=== PATIENT | female | born 1965 | race Caucasian/White ===

== ENCOUNTER → 2017-02-27 | Outpatient (CLI) | payer OTHER ==
[~2017-02-27] MED LIST: SYN100 PO
[2017-02-27 18:05] LABS: BLOOD UREA NITROGEN 14 mg/dl (7-18); CALCIUM 9.8 mg/dl (8.5-10.1); CARBON DIOXIDE 31 mmol/L (21-32); CHLORIDE 106 mmol/L (98-107); CREATININE 0.88 mg/dl (0.60-1.20); GLUCOSE 171 mg/dl (70-99); POTASSIUM 4.7 mmol/L (3.5-5.1); SODIUM 138 mmol/L (136-145)
[2017-02-27 18:08] LABS: CHOLESTEROL/HDL RATIO 4.2
[2017-02-28 06:47] LABS: ESTIMATED AVERAGE GLUCOSE 177 mg/dl; HA1C FLAG Normal (Normal)
== END | disposition home or self-care (01) ==
LOC: C.LABPVFM 15:55
PROVIDERS: ATTEND Nurse Practitioner
DX: E78.5 Hyperlipidemia, unspecified (principal); E11.9 Type 2 diabetes mellitus without complications; E03.9 Hypothyroidism, unspecified

== ENCOUNTER → 2017-08-29 | Outpatient (CLI) | payer OTHER ==
[2017-08-29 17:41] LABS: BLOOD UREA NITROGEN 15 mg/dl (7-18); CARBON DIOXIDE 26 mmol/L (21-32); CREATININE 0.72 mg/dl (0.60-1.20); GLUCOSE 78 mg/dl (70-99); POTASSIUM 4.2 mmol/L (3.5-5.1); SODIUM 138 mmol/L (136-145)
[2017-08-30 07:08] LABS: HEMOGLOBIN A1C 7.6 % (4.5-5.6)
== END | disposition home or self-care (01) ==
LOC: C.LABPVFM 14:44
PROVIDERS: ATTEND Nurse Practitioner
DX: E11.9 Type 2 diabetes mellitus without complications (principal); E03.9 Hypothyroidism, unspecified

== ENCOUNTER 2021-01-30 20:47 | Inpatient (IN) ==
[2021-01-30] MEDS ORDERED: PIPERACILL/TAZOBAC CONSULT ACTIVE PRN (22:28)
[2021-01-30] MEDS ORDERED: VANCOMYCIN HCL 2,750 MG in SODIUM CHLORIDE 0.9% 500 ML IV ONE (22:28)
[2021-01-30] MEDS ORDERED: VANCOMYCIN CONSULT ACTIVE PRN (22:28)
[2021-01-30] MEDS ORDERED: PIPERACILLIN/TAZOBACTAM 4.5 GM/120 ML BAG IV ONE (22:28)
--- NOTE | 2021-01-30 22:37 | Emergency Department Note ---
History of Present Illness General Chief complaint: Foot Injury/Pain Stated complaint: FEET WARTS, REFERRED BY DOCTOR Time Seen by Provider: 01/30/21 22:17 Source: patient and family History of Present Illness Provider complaint: Foot ulcers Onset (ago): month(s) 2 Location: foot, left and right Severity: moderate Pain Consistency: + constant Quality: + other (No significant pain) Relieved By: + none Associated symptoms: no chest pain, no cough, no fever/chills, no nausea/vomiting or no shortness of breath This is a 55-year-old female with a history of diabetic neuropathy presenting with ulcerations to both of her feet. She denies any known injury. She states that the ulcerations have been going on for about 2 months. She eventually saw her primary care physician who referred her to podiatry. She saw podiatry today who called in a prescription for her for antibiotics. She has not been on antibiotics prior to this. They did order x-rays and later called her at home to tell her that she should go immediately to the hospital because of a bone infection based on the x-rays. She denies any pain to her feet because she has diabetic neuropathy. She states her blood sugars has been in the 200s for the most part. She has had no fever, cough or cold symptoms, chest pain, shortness of breath, vomiting, abdominal pain or urinary symptoms. She does have chronic diarrhea from her medications. She has not had her Covid vaccination as [facility]. Home Medications Medication Instructions Recorded Confirmed Type pen needle, diabetic 31 gauge x #100 ea 02/04/20 10/31/20 Rx 3/16" (BD Ultra-Fine Mini Pen Needle) lancets 33 gauge (OneTouch Bebeto See Rx Instructions .ROUTE 09/08/20 10/31/20 Rx Lancets) .COMPLEX #100 unspecified levothyroxine 100 mcg tablet 100 mcg PO DAILY #30 tab 09/08/20 01/30/21 Rx blood-glucose meter (OneTouch #1 ea 09/12/20 10/31/20 Rx Verio Meter) metformin 500 mg tablet 500 mg PO DAILY #30 tab 09/15/20 01/30/21 Rx blood sugar diagnostic (OneTouch ea 10/27/20 10/31/20 History Verio test strips) methocarbamol 750 mg tablet 750 mg PO .COMPLEX #30 tab 10/31/20 01/30/21 Rx insulin aspart U-100 100 unit/mL 0 unit SQ AC 01/30/21 01/30/21 History (3 mL) subcutaneous pen (Novolog Flexpen U-100 Insulin aspart) insulin glargine 100 unit/mL (3 40 unit SQ BID 01/30/21 01/30/21 History mL) subcutaneous pen (Lantus Solostar U-100 Insulin) lisinopril 20 mg tablet 20 mg PO DAILY 01/30/21 01/30/21 History simvastatin 20 mg tablet 20 mg PO HS 01/30/21 01/30/21 History Allergies Allergy/AdvReac Type Severity Reaction Status Date / Time No Known Drug Allergies AdvReac Unknown Unknown Verified 01/30/21 23:34 Past Med/Surg History Medical History Diabetes Hyperlipidemia Hypothyroidism Neuropathy, diabetic Well adult Surgical History History of hysterectomy Family History Denies family history of Ovarian cancer Prostate cancer Myocardial infarction Breast cancer Colorectal cancer Social History Smoking Status: Never smoker Second Hand Exposure: No; Hx Alcohol Use: Yes Alcohol Intake Frequency: Monthly or Less Hx Substance Use: No marital status: Current Living Situation: Spouse and Family current occupational status: unemployed Feels Safe at Home: Yes caffeine: Yes Dental Care, Regularly: No Physical Activity Frequency: Does not Exercise Seatbelt Use: always Sunscreen Use: Yes Review of Systems See HPI for pertinent positives & negatives. and A total of 10 systems reviewed and were otherwise negative Physical Exam Vital Signs Vital Signs - 24 hr 01/30/21 21:15 01/30/21 21:55 01/30/21 22:58 Temperature 37.1 C Temperature Source Temporal Artery Scan Pulse Rate 113 H Pulse Rate [Right Finger] 112 H 101 H Respiratory Rate 20 20 20 Respiratory Effort / Characteristics Non-Labored Spontaneous Respiratory Depth Normal Respiratory Pattern Regular Blood Pressure 162/78 H Blood Pressure [Right Arm] 167/77 H 146/72 H Blood Pressure Mean 106 Blood Pressure Mean [Right Arm] 107 96 Blood Pressure Position Sitting Pulse Oximetry 98 98 98 Oxygen Delivery Method Room Air Room Air Room Air Sepsis Recent Fever Within 48 Hours No Sepsis New/Unexplained Change in Mental Status No Sepsis Action Taken by Nursing No Action Required 01/30/21 23:34 Temperature Temperature Source Pulse Rate Pulse Rate [Right Finger] 109 H Respiratory Rate 20 Respiratory Effort / Characteristics Respiratory Depth Respiratory Pattern Blood Pressure Blood Pressure [Right Arm] 156/89 H Blood Pressure Mean Blood Pressure Mean [Right Arm] 111 Blood Pressure Position Pulse Oximetry 98 Oxygen Delivery Method Room Air Sepsis Recent Fever Within 48 Hours Sepsis New/Unexplained Change in Mental Status Sepsis Action Taken by Nursing Constitutional: Vital signs reviewed. Eyes: Pupils are equal round reactive to light. Conjunctiva are noninjected. ENT: Pharynx is clear without erythema or exudate. Mucous membranes are moist. Neck supple without meningeal signs. Respiratory: Clear to auscultation bilaterally. Breath sounds are equal bilaterally. Cardiovascular: Regular rate and rhythm. No rubs or gallops. GI: Soft, nondistended and nontender. Bowel sounds are present. Musculoskeletal: Silver dollar sized diabetic ulcer to the left heel which is foul-smelling and concerning for pseudomonal infection. There are smaller ulcerations over the left fifth metatarsal head and proximal phalanx. There is a ulceration over the right lateral aspect of the foot over the fifth metatarsal. No discharge is noted. There is no increased warmth to either foot. Integumentary: No cyanosis. or jaundice. Neurological: The patient is awake and alert. No focal deficits. Psychiatric: Normal affect. Not anxious appearing. Course Administered Medications Vancomycin HCl 2,750 mg/ (Sodium Chloride) 555 mls @ 200 mls/hr IV NOW ONE Stop: 01/31/21 01:14 Last Admin: 01/30/21 23:31 Dose: 200 mls/hr Documented by: [id number] Discontinued Medications Piperacillin Sod/Tazobactam Sod (Zosyn) 4.5 gm in 120 mls @ 240 mls/hr IV NOW ONE Stop: 01/30/21 22:57 Last Infusion: 01/30/21 23:31 Dose: 0 mls/hr Documented by: [id number] Admin: 01/30/21 22:52 Dose: 240 mls/hr Documented by: [id number] Medical Decision Making Differential Diagnosis Osteomyelitis, MRSA, Pseudomonas, diabetic foot ulcer, hyperglycemia, bacteremia Medical Records Attestation: I reviewed the patient's medical records. I did perform a limited focused review of portions of the patient's old chart on the electronic medical record. The patient had x-rays of both feet today which shows acute osteomyelitis of both feet. This involves the calcaneus and the fifth metatarsal and proximal phalanx of the left foot as well as the fifth metatarsal of the right foot. Home Medications Current Medication List: was personally reviewed by me Laboratory Data Attestation: I reviewed the patient's lab results. Result diagrams: 01/30/21 22:48 01/30/21 22:48 Lab Results 01/30/21 01/30/21 01/30/21 Range/Units 22:35 22:48 22:48 WBC 7.84 (4.8-10.8) K/uL RBC 4.62 (4.2-5.4) M/uL Hgb 13.8 (12.0-16.0) g/dL Hct 41.7 (37-47) % MCV 90.3 (80-100) fL MCH 29.9 (25-34) pg MCHC 33.1 (32-36) g/dL RDW Std Deviation 48.7 H (36.4-46.3) fL RDW Coeff of Jose 14.7 H (11.5-14.5) % Plt Count 231 (130-400) K/uL MPV 10.0 (7.4-10.4) fL Immature Gran % (Auto) 0.1 % Neut % (Auto) 67.6 % Lymph % (Auto) 22.7 % [place] % (Auto) 8.0 % Eos % (Auto) 1.3 % Baso % (Auto) 0.3 % Neut # (Auto) 5.30 (1.4-6.5) K/uL Lymph # (Auto) 1.78 (1.2-3.4) K/uL [place] # (Auto) 0.63 H (0.11-0.59) K/uL Eos # (Auto) 0.10 (0-0.5) K/uL Baso # (Auto) 0.02 (0-0.2) K/uL Immature Gran # (Auto) 0.01 (0.00-0.02) K/uL Sodium 137 (136-145) mmol/L Potassium 4.3 (3.5-5.1) mmol/L Chloride 107 (98-107) mmol/L Carbon Dioxide 27 (21-32) mmol/L Anion Gap 4.0 (3-11) BUN 17 (7-18) mg/dl Creatinine 0.85 (0.6-1.2) mg/dl Est Cr Clr Drug Dosing 106.8 ml/min Est GFR ( Amer) 88.2 ml/min Est GFR (Non-Af Amer) 76.1 ml/min BUN/Creatinine Ratio 20.0 (10-20) Glucose 256 H (70-99) mg/dl Lactate (0.4-2.0) mmol/L Calcium 9.1 (8.5-10.1) mg/dl Total Bilirubin 0.5 (0.2-1) mg/dl AST 28 (15-37) U/L ALT 42 (12-78) U/L Alkaline Phosphatase 101 (45-117) U/L Total Protein 8.3 H (6.4-8.2) gm/dl Albumin 3.1 L (3.4-5.0) gm/dl Globulin 5.2 H (2.5-4.0) gm/dl Albumin/Globulin Ratio 0.6 L (0.9-2) COVID-19 Eval Order Covid19 at [facility] 01/30/21 Range/Units 22:49 WBC (4.8-10.8) K/uL RBC (4.2-5.4) M/uL Hgb (12.0-16.0) g/dL Hct (37-47) % MCV (80-100) fL MCH (25-34) pg MCHC (32-36) g/dL RDW Std Deviation (36.4-46.3) fL RDW Coeff of Jose (11.5-14.5) % Plt Count (130-400) K/uL MPV (7.4-10.4) fL Immature Gran % (Auto) % Neut % (Auto) % Lymph % (Auto) % [place] % (Auto) % Eos % (Auto) % Baso % (Auto) % Neut # (Auto) (1.4-6.5) K/uL Lymph # (Auto) (1.2-3.4) K/uL [place] # (Auto) (0.11-0.59) K/uL Eos # (Auto) (0-0.5) K/uL Baso # (Auto) (0-0.2) K/uL Immature Gran # (Auto) (0.00-0.02) K/uL Sodium (136-145) mmol/L Potassium (3.5-5.1) mmol/L Chloride (98-107) mmol/L Carbon Dioxide (21-32) mmol/L Anion Gap (3-11) BUN (7-18) mg/dl Creatinine (0.6-1.2) mg/dl Est Cr Clr Drug Dosing ml/min Est GFR ( Amer) ml/min Est GFR (Non-Af Amer) ml/min BUN/Creatinine Ratio (10-20) Glucose (70-99) mg/dl Lactate 2.5 H* (0.4-2.0) mmol/L Calcium (8.5-10.1) mg/dl Total Bilirubin (0.2-1) mg/dl AST (15-37) U/L ALT (12-78) U/L Alkaline Phosphatase (45-117) U/L Total Protein (6.4-8.2) gm/dl Albumin (3.4-5.0) gm/dl Globulin (2.5-4.0) gm/dl Albumin/Globulin Ratio (0.9-2) COVID-19 Eval Order MDM Narrative I did evaluate the patient as noted above. She is presenting with acute osteomyelitis of both feet on x-ray earlier today. IV access was established. I did order blood cultures. I did treat the patient with IV vancomycin and IV Zosyn to cover MRSA and gram-negative organisms including Pseudomonas. I did order and review the patient's blood work as noted in the electronic medical record. CBC is unremarkable without leukocytosis or anemia. Electrolytes are unremarkable. Her glucose is elevated to 56. Lactate is 2.5. I did discuss the case with the shoe caser. The hospitalist was informed. Covid testing is currently pending. Impression & Plan Acute osteomyelitis, Neuropathy, diabetic, Hyperglycemia Discharge Plan Visit Data Chief Complaint: Foot Injury/Pain Stated Complaint: FEET WARTS, REFERRED BY DOCTOR ED Provider: Shane Cardona Discharge Problem: Acute osteomyelitis, Neuropathy, diabetic, Hyperglycemia Patient Disposition: Being Evaluated by Hospitalist Forms Stand Alone Forms: My [facility] Prescriptions Prescriptions: No Action (DME) pen needle, diabetic [BD Ultra-Fine Mini Pen Needle] 31 gauge x 3/16" needle See Dose Instructions .ROUTE .MEDSUPPLY Qty: 100 RF: 5 (DME) blood-glucose meter [OneTouch Verio Meter] Misc See Rx Instructions .ROUTE .MEDSUPPLY Qty: 1 RF: 0 metformin 500 mg tablet 500 mg PO DAILY Qty: 30 RF: 11 methocarbamol 750 mg tablet 750 mg PO .COMPLEX Qty: 30 RF: 0 (DME) OneTouch Verio test strips Strip See Rx Instructions .ROUTE .MEDSUPPLY RF: 0 levothyroxine 100 mcg tablet 100 mcg PO DAILY Qty: 30 RF: 11 lancets [OneTouch Delica Lancets] 33 gauge misc See Rx Instructions .ROUTE .COMPLEX Qty: 100 RF: 11 lisinopril 20 mg tablet 20 mg PO DAILY RF: 0 simvastatin 20 mg tablet 20 mg PO HS RF: 0 insulin aspart U-100 [Novolog Flexpen U-100 Insulin] 100 unit/mL (3 mL) insulin pen 0 unit SQ AC RF: 0 Lantus Solostar U-100 Insulin 100 unit/mL (3 mL) insulin pen 40 unit SQ BID RF: 0 Referrals Referrals: Stephy Klein CRNP [Primary Care Provider] -
[2021-01-30 23:05] LABS: Basophils # (auto) 0.02 K/uL (0-0.2); Basophils % (auto) 0.3 %; Eosinophils % (auto) 1.3 %; Hematocrit (blood only) 41.7 % (37-47); Hemoglobin 13.8 g/dL (12.0-16.0); Immature Granulocytes # (auto) 0.01 K/uL (0.00-0.02); Immature Granulocytes % (auto) 0.1 %; Lymphocytes # (auto) 1.78 K/uL (1.2-3.4); Lymphocytes % (auto) 22.7 %; Mean Corpuscular Hemoglobin 29.9 pg (25-34); Mean Corpuscular Hgb Conc 33.1 g/dL (32-36); Mean Corpuscular Volume 90.3 fL (80-100); Monocytes # (auto) 0.63 K/uL (0.11-0.59); Neutrophils % (auto) 67.6 %; Platelet Count 231 K/uL (130-400); RDW Coefficient of Variation 14.7 % (11.5-14.5); RDW Standard Deviation 48.7 fL (36.4-46.3); Red Blood Count 4.62 M/uL (4.2-5.4); White Blood Count 7.84 K/uL (4.8-10.8)
[2021-01-30 23:38] LABS: Albumin Level 3.1 gm/dl (3.4-5.0); Calcium 9.1 mg/dl (8.5-10.1); Creatinine Clr Calc Pharmacy 106.8 ml/min; Est GFR (African American) 88.2 ml/min; Est GFR (Non-African American) 76.1 ml/min; Potassium 4.3 mmol/L (3.5-5.1)
[2021-01-30 23:40] LABS: Albumin Globulin Ratio 0.6 (0.9-2); Bilirubin,Total 0.5 mg/dl (0.2-1); Globulin 5.2 gm/dl (2.5-4.0); Total Protein 8.3 gm/dl (6.4-8.2)
--- NOTE | 2021-01-30 23:47 | History & Physical Report ---
Date of Service January 30, 2021 Assessment & Plan (1) Diabetic foot ulcer with osteomyelitis: Plan: Osteomyelitis left calcaneus and left first MTP, proximal phalanx of the left fifth toe. Osteomyelitis of right fifth MTP that is most likely chronic but could also possibly have an acute complement Place on vancomycin IV and Zosyn IV per pharmacokinetic monitoring Patient will likely need a PICC line placed for extended course of antibiotics (2) Diabetes: Plan: Continue insulin glargine 40 units subcu twice daily. Place on Accu-Cheks before meals and at bedtime with NovoLog coverage per scale Check hemoglobin A1c Hold Metformin (3) Hypothyroidism: Plan: Continue levothyroxine 100 mcg daily (4) Neuropathy, diabetic: Plan: Significant decrease sensation, allowing progression of significant ulceration and osteomyelitis without significant pain appreciated (5) Hyperlipidemia: Plan: Continue simvastatin 20 mg at bedtime (6) Fatty liver: Plan: Follow serial laboratories (7) Hypertension: Plan: Continue lisinopril History of Present Illness Chief Complaint: The patient is referred to the emergency department by their outpatient physician due to concerns regarding foot ulcers bilaterally. Primary Care Provider: TOBY Kim The patient is a 55-year-old female with past medical history including hyperglycemia in diabetes, diabetes mellitus, hypothyroidism, diabetic neuropathy, vitamin D deficiency, hyperlipidemia, fatty liver, leiomyoma of uterus, hypertension, obesity and muscle spasm, was referred to the emergency department by her outpatient physician due to concerns regarding diabetic foot ulcers. Patient herself not experience any discomfort due to her significant diabetic neuropathy. Allergies Allergy/AdvReac Type Severity Reaction Status Date / Time No Known Drug Allergies AdvReac Unknown Unknown Verified 01/30/21 23:34 Home Medications Medication Instructions Recorded Confirmed Type pen needle, diabetic 31 gauge x #100 ea 02/04/20 10/31/20 Rx 3/16" (BD Ultra-Fine Mini Pen Needle) lancets 33 gauge (OneTouch Delica See Rx Instructions .ROUTE 09/08/20 10/31/20 Rx Lancets) .COMPLEX #100 unspecified levothyroxine 100 mcg tablet 100 mcg PO DAILY #30 tab 09/08/20 01/30/21 Rx blood-glucose meter (OneTouch #1 ea 09/12/20 10/31/20 Rx Verio Meter) metformin 500 mg tablet 500 mg PO DAILY #30 tab 09/15/20 01/30/21 Rx blood sugar diagnostic (OneTouch ea 10/27/20 10/31/20 History Verio test strips) methocarbamol 750 mg tablet 750 mg PO .COMPLEX #30 tab 10/31/20 01/30/21 Rx insulin aspart U-100 100 unit/mL 0 unit SQ AC 01/30/21 01/30/21 History (3 mL) subcutaneous pen (Novolog Flexpen U-100 Insulin aspart) insulin glargine 100 unit/mL (3 40 unit SQ BID 01/30/21 01/30/21 History mL) subcutaneous pen (Lantus Solostar U-100 Insulin) lisinopril 20 mg tablet 20 mg PO DAILY 01/30/21 01/30/21 History simvastatin 20 mg tablet 20 mg PO HS 01/30/21 01/30/21 History Past Med/Surg History Medical History (Updated 01/31/21 @ 03:50 by Dao Pedraza MD) Diabetes Hyperlipidemia Hypertension Hypothyroidism Neuropathy, diabetic Well adult Surgical History History of hysterectomy Family History Denies family history of Ovarian cancer Prostate cancer Myocardial infarction Breast cancer Colorectal cancer Social History Smoking Status: Never smoker Second Hand Exposure: No; Hx Alcohol Use: Yes Alcohol Intake Frequency: Monthly or Less Hx Substance Use: No Beliefs That Will Affect Care: None marital status: Current Living Situation: Spouse current occupational status: unemployed Other Information That Helps Us Care for You: No Feels Safe at Home: Yes Safety Concerns: Feels Safe At This Time caffeine: Yes Dental Care, Regularly: No Physical Activity Frequency: Does not Exercise Seatbelt Use: always Sunscreen Use: Yes Assistive Devices: Glasses Review of Systems Review of Systems: The patient denies chest pain, palpitations, shortness of breath, dyspnea on exertion, cough, lower extremity swelling, sore throat, fevers, chills, sweats, weight change, nausea, vomiting, diarrhea , constipation, abdominal pain, pelvic pain, blood in urine or stool, dysuria, urinary frequency or urgency, lightheadedness, dizziness, headache, memory loss, loss of consciousness, imbalance, focal or generalized weakness, numbness or tingling in arms, generalized arthralgias or myalgias, back or neck pain, or night sweats. The review of systems is otherwise negative other than for that already noted above, and at least 10 systems have been reviewed. Physical Exam Physical Exam: The patient is awake, alert and oriented 3, well developed and well nourished, normocephalic and atraumatic, lying in bed and in no acute distress. HEENT--PERRL, EOMI, mucous membranes and oropharynx normal. Neck--supple. No JVD. No bruits. Thyroid normal, trachea midline, no adenopathy. Heart--normal S1 and S2. No murmurs, rubs or gallops. Lungs--clear bilaterally, no respiratory distress, no accessory muscle use. Abdomen--normal bowel sounds and soft. Nontender. Nondistended. Morbidly obese Extremities--no cyanosis or clubbing. No edema. Dermatologic--ulcer noted over plantar surface of right fifth MTP, and over left first MTP area Neurologic--cranial nerves II through XII grossly intact. Rheumatologic--limited exam due to body habitus Psychiatric--normal affect. Results & Data Results & Data ([facility]) Vital Signs (Past 12 Hours) Vital Signs Temp Pulse Pulse Resp BP BP Pulse Ox 01/30/21 23:34 109 H 20 156/89 H 98 01/30/21 22:58 101 H 20 146/72 H 98 01/30/21 21:55 112 H 20 167/77 H 98 01/30/21 21:15 98.8 F 113 H 20 162/78 H 98 Laboratory Results Laboratory Results WBC 7.84 K/uL (4.8-10.8) 01/30/21 22:48 RBC 4.62 M/uL (4.2-5.4) 01/30/21 22:48 Hgb 13.8 g/dL (12.0-16.0) 01/30/21 22:48 Hct 41.7 % (37-47) 01/30/21 22:48 MCV 90.3 fL (80-100) 01/30/21 22:48 MCH 29.9 pg (25-34) 01/30/21 22:48 MCHC 33.1 g/dL (32-36) 01/30/21 22:48 RDW Std Deviation 48.7 fL (36.4-46.3) H 01/30/21 22:48 RDW Coeff of Jose 14.7 % (11.5-14.5) H 01/30/21 22:48 Plt Count 231 K/uL (130-400) 01/30/21 22:48 MPV 10.0 fL (7.4-10.4) 01/30/21 22:48 Immature Gran % (Auto) 0.1 % 01/30/21 22:48 Neut % (Auto) 67.6 % 01/30/21 22:48 Lymph % (Auto) 22.7 % 01/30/21 22:48 Carbon % (Auto) 8.0 % 01/30/21 22:48 Eos % (Auto) 1.3 % 01/30/21 22:48 Baso % (Auto) 0.3 % 01/30/21 22:48 Neut # (Auto) 5.30 K/uL (1.4-6.5) 01/30/21 22:48 Lymph # (Auto) 1.78 K/uL (1.2-3.4) 01/30/21 22:48 Carbon # (Auto) 0.63 K/uL (0.11-0.59) H 01/30/21 22:48 Eos # (Auto) 0.10 K/uL (0-0.5) 01/30/21 22:48 Baso # (Auto) 0.02 K/uL (0-0.2) 01/30/21 22:48 Immature Gran # (Auto) 0.01 K/uL (0.00-0.02) 01/30/21 22:48 Sodium 137 mmol/L (136-145) 01/30/21 22:48 Potassium 4.3 mmol/L (3.5-5.1) 01/30/21 22:48 Chloride 107 mmol/L (98-107) 01/30/21 22:48 Carbon Dioxide 27 mmol/L (21-32) 01/30/21 22:48 Anion Gap 4.0 (3-11) 01/30/21 22:48 BUN 17 mg/dl (7-18) 01/30/21 22:48 Creatinine 0.85 mg/dl (0.6-1.2) 01/30/21 22:48 Est Cr Clr Drug Dosing 106.8 ml/min 01/30/21 22:48 Est GFR ( Amer) 88.2 ml/min 01/30/21 22:48 Est GFR (Non-Af Amer) 76.1 ml/min 01/30/21 22:48 BUN/Creatinine Ratio 20.0 (10-20) 01/30/21 22:48 Glucose 256 mg/dl (70-99) H 01/30/21 22:48 POC Glucose 205 mg/dl (70-99) H 01/31/21 02:33 Lactate 1.3 mmol/L (0.4-2.0) 01/31/21 00:55 Calcium 9.1 mg/dl (8.5-10.1) 01/30/21 22:48 Total Bilirubin 0.5 mg/dl (0.2-1) 01/30/21 22:48 AST 28 U/L (15-37) 01/30/21 22:48 ALT 42 U/L (12-78) 01/30/21 22:48 Alkaline Phosphatase 101 U/L (45-117) 01/30/21 22:48 Total Protein 8.3 gm/dl (6.4-8.2) H 01/30/21 22:48 Albumin 3.1 gm/dl (3.4-5.0) L 01/30/21 22:48 Globulin 5.2 gm/dl (2.5-4.0) H 01/30/21 22:48 Albumin/Globulin Ratio 0.6 (0.9-2) L 01/30/21 22:48 COVID-19 Eval Order Covid19 at [facility] 01/30/21 22:35 SARS-CoV-2 (PCR) NEGATIVE (Negative) 01/30/21 22:35 Diagnostic Findings [facility], [phone] XRay Report Patient: CHARMAINE GUARDADOAdmit Date: 01/30/21MR#: [id number]: [address]Acct ID:[id number]: Date: [address] Zip: [place] [id number]: 55Location: RADSex: FRoom/Bed:Att [facility]: Nirav Mcclellan, III, DPMDiagnosis: L97.413,C97.526,L97.423Pri Phy: Stephy Klein CRNPService Date: 01/30/21Fam Phy:Interpreting Phy: Nathan June MDAdmit Phy: Ordering Phy: Nirav Mcclellan, III, DPM cc: ~ XR foot LT min 3V routine CLINICAL HISTORY: L97.413,C97.526,L97.423. Diabetic ulcers. COMPARISON: None FINDINGS: Note is made of left foot soft tissue swelling. There is a wound overlying the posterior aspect of the calcaneus. Note is made of erosion of the adjacent posterior most aspect of the left calcaneus. Markedly abnormal appearance of the left fifth metatarsal is noted with sclerosis and lucency with periosteal reaction. There may be an old fracture of the midshaft of the left fifth metatarsal. There is also significant erosion within the base of the proximal phalanx of the left fifth toe. 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 Soft tissue calcifications of the left lower leg are incidentally noted. IMPRESSION: 1. Wound overlying the posterior calcaneus with erosion of the adjacent posterior calcaneus suggestive of acute osteomyelitis. 2. Findings highly suggestive of extensive acute osteomyelitis of the left first metatarsal and the proximal phalanx of the left fifth toe. Adjacent wound. This finding will be called/faxed to ordering provider at time of dictation. ACT 112: Negative or not required by law. Electronically signed by: Nathan June M.D. 01/30/2021 1:46 PM Dictated: 01/30/21 1342Transcribed: 01/30/21 1342 [facility], [phone] XRay Report Patient: CHARMAINE GUARDADOAdmit Date: 01/30/21MR#: [id number]: [address]Acct ID:[id number]: Date: 1965[facility] Zip: [place], [place] [address]Knb: 55Location: RADSex: FRoom/Bed:Att Phy: Nirav Mcclellan, III, DPMDiagnosis: L97.413,C97.526,L97.423Pri Phy: Stephy Klein, CRNPService Date: 01/30/21Fa Phy:Interpreting Phy: Nathan June MDAdmit Phy: Ordering Phy: Nirav Mcclellan, III, DPM cc: ~ XR foot RT min 3V routine CLINICAL HISTORY: L97.413,C97.526,L97.423. Diabetic ulcers. COMPARISON: None FINDINGS: Alignment of the right foot is anatomic. Tarsometatarsal joints are intact. No acute fracture. Note is made of a wound the lateral right midfoot overlying the lateral of the proximal right fifth metatarsal. There is mild sclerosis within the base and proximal shaft of the right fifth metatarsal. Plantar posterior calcaneal spurring is noted. Note is made of moderate osteoarthritis within multiple articulations within the right foot. IMPRESSION: Lateral right midfoot wound. Sclerosis of the base and proximal shaft of the right fifth metatarsal, adjacent to the wound. This sclerosis favors osteomyelitis. Although probably chronic, acute osteomyelitis cannot be excluded by radiography. ACT 112: Negative or not required by law. Electronically signed by: Nathan June M.D. 01/30/2021 1:42 PM Dictated: 01/30/21 1338Transcribed: 01/30/21 1338 Code Status & VTE Plan Code Status Full code VTE Prophylaxis Plan VTE Prophylaxis will be ordered: Yes PG Care Time/CCT Total # of Minutes Spent Total Time Spent with Patient: Total time spent is greater than 50% in coordination of care (as documented) at patient's floor/unit and/or counseling patient: Coding Level of Care Code 30107 Initial Inpt Care Lvl 3 Diagnoses Diabetic foot ulcer with osteomyelitis E11.621; E11.69; L97.509; M86.9 Diabetes E11.9 Hypothyroidism E03.9 Neuropathy, diabetic E11.40 Hyperlipidemia E78.5 Fatty liver K76.0 Hypertension I10
[2021-01-31] MEDS ORDERED: VANCOMYCIN HCL 2,000 MG in SODIUM CHLORIDE 0.9% 500 ML IV SCH (01:56)
[2021-01-31] MEDS ORDERED: GLUCAGON FOR INJ 1 MG VIAL SQ PRN (01:56)
[2021-01-31] MEDS ORDERED: DEXTROSE 50% 50 ML SYRINGE IV PRN (01:56)
[2021-01-31] MEDS ORDERED: CARBOHYDRATES FOR HYPOGLYCEMIA PO PRN (01:56)
[2021-01-31] MEDS ORDERED: GLUCOSE 10 TABS/TUBE PO PRN (01:56)
[2021-01-31] MEDS ORDERED: VANCOMYCIN CONSULT ACTIVE PRN (01:56)
[2021-01-31] MEDS ORDERED: ONDANSETRON INJ 2 MG/ML 2 ML VIAL IV PRN (01:56)
[2021-01-31] MEDS ORDERED: PIPERACILL/TAZOBAC CONSULT ACTIVE PRN (01:56)
[2021-01-31] MEDS ORDERED: GLUCOSE 40% GEL 15 GM TUBE PO PRN (01:56)
[2021-01-31] MEDS: INSULIN ASPART 100 UNITS/ML 3 ML PEN SC SCH ×5 (02:57→21:05)
[2021-01-31] MEDS: INSULIN GLARGINE SOLOSTAR 100 UNITS/ML 3 ML PEN SQ SCH ×3 (02:59→21:05)
[2021-01-31] MEDS: PIPERACILLIN/TAZOBACTAM 4.5 GM in DEXTROSE 5% 100 ML IV SCH ×3 (03:05→20:30)
[2021-01-31] MEDS ORDERED: DAPTOmycin 375 MG in SYRINGE 0 ML IV SCH (04:00)
[2021-01-31] MEDS: HEPARIN SOD 5,000 UNIT/0.5 ML VIAL SQ SCH ×3 (06:39→21:07)
[2021-01-31] MEDS: LEVOTHYROXINE SODIUM 100 MCG TABLET PO SCH (06:41)
[2021-01-31 07:47] LABS: Estimated Average Glucose 255 mg/dl; Hemoglobin A1C 10.5 % (4.5-5.6)
[2021-01-31] MEDS: lisinopril 20 MG TAB PO SCH (08:45)
[2021-01-31] MEDS ORDERED: DAPTOmycin 200 MG in SYRINGE 0 ML IV ONE (11:00)
--- NOTE | 2021-01-31 17:39 | Hospitalist Progress Note ---
Date of Service January 31, 2021 Assessment & Plan (1) Diabetic foot ulcer with osteomyelitis: Plan: Osteomyelitis left calcaneus and left first MTP, proximal phalanx of the left fifth toe. Osteomyelitis of right fifth MTP that is most likely chronic but could also possibly have an acute component is draining and with foul smell Place on vancomycin IV and Zosyn IV per pharmacokinetic monitoring Patient will likely need a PICC line placed for extended course of antibiotics (2) Diabetes: Plan: Continue insulin glargine 40 units subcu twice daily. Place on Accu-Cheks before meals and at bedtime with NovoLog coverage per scale Check hemoglobin A1c Hold Metformin (3) Hypothyroidism: Plan: Continue levothyroxine 100 mcg daily (4) Neuropathy, diabetic: Plan: Significant decrease sensation, allowing progression of significant ulceration and osteomyelitis without significant pain appreciated (5) Hyperlipidemia: Plan: Continue simvastatin 20 mg at bedtime (6) Fatty liver: Plan: Follow serial laboratories (7) Hypertension: Plan: Continue lisinopril Admission and Anticipated Discharge Date Admission Date: January 30, 2021 Subjective pt has no new complaints or issues, has wounds on both feet. Not febrile at this time Review of Systems Review of Systems: Mild distress and fatigue no headache, no visual changes no speech or swallowing issues no chest pain, pressure or palpitations no shortness of breath, cough or wheezes no abdominal pain, nausea or vomiting, diarrhea or constipation no dysuria, hematuria or frequency no focal joint pain is bilateral lower extremity swelling no back pain, CVA tenderness or radicular pain Stasis changes to both legs no focal signs of weakness or numbness or altered sensation no complaints of anxiety or depression.. Physical Exam Physical Exam: The patient appeared obese no apparent distress Vital signs as documented. Head exam is normocephalic atraumatic Neck is without JVD, thyromegaly, or carotid bruits. Lungs are clear to auscultation, no focal loss of breath sounds Cardiac exam, Rhythm is regular.. No murmurs, rubs or gallops. Abdominal exam reveals normal bowel sounds, soft non tender, no masses Extremities are edematous, chronic venous stasis changes, open areas on both feet, foul smell from right, macerated tissue on left Neurologic exam is alert and oriented, no focal loss of strength distal neuropathy Skin is with chronic stasis discoloration Psychologically is without concerns for anxiety or depression Results & Data Results & Data ([facility]) Vital Signs (Past 12 Hours) Vital Signs Temp Pulse Resp BP Pulse Ox 01/31/21 14:48 97.9 F 104 H 16 131/84 95 01/31/21 07:11 98.2 F 93 H 16 120/75 95 01/31/21 06:54 98.2 F 97 H 16 128/80 94 PG Care Time/CCT Total # of Minutes Spent Total Time Spent with Patient: Total time spent is greater than 50% in coordination of care (as documented) at patient's floor/unit and/or counseling patient: Coding Level of Care Code 50449 Subseq Hosp Care Lvl 3 Diagnoses Diabetic foot ulcer with osteomyelitis E11.621; E11.69; L97.509; M86.9 Diabetes E11.9 Hypothyroidism E03.9 Neuropathy, diabetic E11.40 Hyperlipidemia E78.5 Fatty liver K76.0 Hypertension I10
[2021-01-31] MEDS: SIMVASTATIN 20 MG TAB PO SCH (20:20)
[2021-01-31] MEDS: ACETAMINOPHEN 325 MG TAB PO PRN (20:29)
[2021-02-01] MEDS: PIPERACILLIN/TAZOBACTAM 4.5 GM in DEXTROSE 5% 100 ML IV SCH ×3 (04:42→20:15)
[2021-02-01] MEDS: DAPTOmycin 550 MG in SYRINGE 0 ML IV SCH (04:43)
[2021-02-01] MEDS: HEPARIN SOD 5,000 UNIT/0.5 ML VIAL SQ SCH ×3 (05:53→20:55)
[2021-02-01] MEDS: LEVOTHYROXINE SODIUM 100 MCG TABLET PO SCH (05:53)
[2021-02-01 08:27] LABS: Basophils # (auto) 0.03 K/uL (0-0.2); Basophils % (auto) 0.5 %; Eosinophils # (auto) 0.21 K/uL (0-0.5); Eosinophils % (auto) 3.3 %; Hematocrit (blood only) 40.1 % (37-47); Hemoglobin 13.1 g/dL (12.0-16.0); Lymphocytes # (auto) 2.07 K/uL (1.2-3.4); Lymphocytes % (auto) 32.3 %; Mean Corpuscular Hemoglobin 29.8 pg (25-34); Mean Corpuscular Hgb Conc 32.7 g/dL (32-36); Mean Corpuscular Volume 91.1 fL (80-100); Mean Platelet Volume 9.9 fL (7.4-10.4); Monocytes # (auto) 0.57 K/uL (0.11-0.59); Monocytes % (auto) 8.9 %; Neutrophils # (auto) 3.52 K/uL (1.4-6.5); Platelet Count 245 K/uL (130-400); RDW Coefficient of Variation 14.9 % (11.5-14.5)
--- NOTE | 2021-02-01 08:37 | Magnetic Resonance Report ---
MR foot LT w/o con HISTORY: Abnormal left foot radiograph. both feet have wounds, r/o osteo TECHNIQUE: Multiplanar multisequence MRI of the left forefoot was performed without contrast accordin g to standard departmental protocol. COMPARISON STUDY: Left foot radiograph 01/30/2021. FINDINGS: There is extensive subcutaneous and deep soft tissue edema seen throughout the visualized f orefoot. Abnormal marrow signal intensity and cortical destruction within the majority of the fifth m etatarsal and base of the right fifth toe proximal phalanx consistent with an osteomyelitis. There is a possible pathologic fracture at the neck of the fifth metatarsal. Best seen on axial image 17 ther e is a T2 hyperintense lobular tissue focus which partially surrounds the head of the fifth metatarsa l. This measures 2.8 x 1.5 cm and demonstrates internal septations. This may represent a soft tissue abscess. There is also marrow edema without abnormal T1 signal or cortical destruction within the dis alvaro findings the right first toe. This favors an osteitis. No evidence for osteomyelitis at this time . The Lisfranc joint is intact. Soft tissue wound at the dorsal lateral aspect of the fifth MTP joint . IMPRESSION: 1. Abnormal marrow signal and cortical destruction within the majority of the fifth metatarsal and ba se of the right fifth toe proximal phalanx consistent with osteomyelitis. 2. There is suggestion of a 2.8 x 1.5 cm abscess along the dorsal lateral aspect of the forefoot at t he level of the fifth metatarsal head. 3. Possible pathologic fracture at the neck of the fifth metatarsal. 4. Osteitis without evidence for osteomyelitis within the distal phalanx of the first toe. ACT 112: Negative or not required by law. Electronically signed by: Koby Balderrama M.D. 02/01/2021 8:36 AM
--- NOTE | 2021-02-01 08:38 | Magnetic Resonance Report ---
MR foot RT w/o con HISTORY: 55 years-old Female both feet have wounds, r/o osteo patient presents with chronic nonheali ng ulcers of the right foot COMPARISON: Right foot radiographs 01/30/2021 TECHNIQUE: Multiplanar multisequence MRI of the right foot was obtained without the use of IV contras t FINDINGS: There is a 3.5 x 2.0 cm soft tissue ulcer of the lateral midfoot/forefoot junction superficial to the base of the fifth metatarsal. Associated skin thickening with subcutaneous edema suggestive of cellu litis. There is mild intrinsic atrophy of the musculature of the foot. This finding in conjunction wi th diffuse intramuscular edema is suggestive of chronic denervation changes. No drainable fluid colle ction. The imaged flexor and extensor tendons appear intact. The study is mildly motion degraded. The Lisfranc ligament appears intact. There is mild multifocal osteoarthritis. Mild hallux valgus. Sclerosis involving the lateral cortex o f the proximal fifth metatarsal redemonstrated. No osseous erosions identified to suggest acute osteo myelitis. IMPRESSION: 1. Soft tissue ulcer of the lateral midfoot/forefoot junction with adjacent cellulitis. No drainable fluid collection. 2. Chronic appearing sclerosis involves the lateral cortex of the fifth metatarsal base. There is no evidence of acute osteomyelitis. 3. Chronic denervation changes. ACT 112: Negative or not required by law. The above report was generated using voice recognition software. It may contain grammatical, syntax o r spelling errors. Electronically signed by: Parminder Steinberg M.D. 02/01/2021 8:37 AM
[2021-02-01 09:10] LABS: Albumin Level 2.5 gm/dl (3.4-5.0); Calcium 8.3 mg/dl (8.5-10.1); Creatinine Clr Calc Pharmacy 148.7 ml/min; Est GFR (African American) 117.3 ml/min; Est GFR (Non-African American) 101.2 ml/min; Potassium 3.7 mmol/L (3.5-5.1)
[2021-02-01 09:17] LABS: Albumin Globulin Ratio 0.6 (0.9-2); Bilirubin,Total 1.2 mg/dl (0.2-1); Globulin 4.4 gm/dl (2.5-4.0); Total Protein 6.9 gm/dl (6.4-8.2)
[2021-02-01] MEDS: INSULIN GLARGINE SOLOSTAR 100 UNITS/ML 3 ML PEN SQ SCH ×2 (09:32→20:54)
[2021-02-01] MEDS: INSULIN ASPART 100 UNITS/ML 3 ML PEN SC SCH ×4 (09:32→20:33)
[2021-02-01] MEDS: lisinopril 20 MG TAB PO SCH (09:33)
--- NOTE | 2021-02-01 19:10 | Hospitalist Progress Note ---
Date of Service February 01, 2021 Assessment & Plan (1) Diabetic foot ulcer with osteomyelitis: Plan: Osteomyelitis left calcaneus and left first MTP, proximal phalanx of the left fifth toe. Osteomyelitis of right fifth MTP that is most likely chronic but could also possibly have an acute component is draining and with foul smell Place on vancomycin IV and Zosyn IV per pharmacokinetic monitoring Patient will likely need a PICC line placed for extended course of antibiotics left foot MRI 1. Abnormal marrow signal and cortical destruction within the majority of the fifth metatarsal and base of the right fifth toe proximal phalanx consistent with osteomyelitis. 2. There is suggestion of a 2.8 x 1.5 cm abscess along the dorsal lateral aspect of the forefoot at the level of the fifth metatarsal head. 3. Possible pathologic fracture at the neck of the fifth metatarsal. 4. Osteitis without evidence for osteomyelitis within the distal phalanx of the first toe. right foot without definitely osteomyelitis but chronic appearing sclerosis of the lateral cortex of the 5th metarsal base will need ortho eval for possible surgical correction (2) Diabetes: Plan: Continue insulin glargine 40 units subcu twice daily. Place on Accu-Cheks before meals and at bedtime with NovoLog coverage per scale Check hemoglobin A1c Hold Metformin (3) Hypothyroidism: Plan: Continue levothyroxine 100 mcg daily (4) Neuropathy, diabetic: Plan: Significant decrease sensation, allowing progression of significant ulceration and osteomyelitis without significant pain appreciated (5) Hyperlipidemia: Plan: Continue simvastatin 20 mg at bedtime (6) Fatty liver: Plan: Follow serial laboratories (7) Hypertension: Plan: Continue lisinopril Admission and Anticipated Discharge Date Admission Date: January 30, 2021 Subjective pt has no new complaints or issues, has wounds on both feet associated with osteomyelitis seen on imaging , pt is shocked at this news. Not febrile at this time Review of Systems Review of Systems: Mild distress and fatigue no headache, no visual changes no speech or swallowing issues no chest pain, pressure or palpitations no shortness of breath, cough or wheezes no abdominal pain, nausea or vomiting, diarrhea or constipation no dysuria, hematuria or frequency no focal joint pain is bilateral lower extremity swelling no back pain, CVA tenderness or radicular pain Stasis changes to both legs, open areas on feet no focal signs of weakness or numbness or altered sensation no complaints of anxiety or depression.. Physical Exam Physical Exam: The patient appeared obese no apparent distress Vital signs as documented. Head exam is normocephalic atraumatic Neck is without JVD, thyromegaly, or carotid bruits. Lungs are clear to auscultation, no focal loss of breath sounds Cardiac exam, Rhythm is regular.. No murmurs, rubs or gallops. Abdominal exam reveals normal bowel sounds, soft non tender, no masses Extremities are edematous, chronic venous stasis changes, open areas on both feet, foul smell from right, macerated tissue on left Neurologic exam is alert and oriented, no focal loss of strength distal neuropathy Skin is with chronic stasis discoloration Psychologically is without concerns for anxiety or depression Results & Data Results & Data ([facility]) Vital Signs (Past 12 Hours) Vital Signs Temp Pulse Resp BP BP Pulse Ox 02/01/21 15:17 98.2 F 89 16 114/68 95 02/01/21 08:38 98.1 F 82 16 121/76 97 PG Care Time/CCT Total # of Minutes Spent Total Time Spent with Patient: Total time spent is greater than 50% in coordination of care (as documented) at patient's floor/unit and/or counseling patient: Coding Level of Care Code 80320 Subseq Hosp Care Lvl 2 Diagnoses Diabetic foot ulcer with osteomyelitis E11.621; E11.69; L97.509; M86.9 Diabetes E11.9 Hypothyroidism E03.9 Neuropathy, diabetic E11.40 Hyperlipidemia E78.5 Fatty liver K76.0 Hypertension I10
[2021-02-01] MEDS: SIMVASTATIN 20 MG TAB PO SCH (20:18)
[2021-02-02] MEDS: ACETAMINOPHEN 325 MG TAB PO PRN ×2 (00:18→19:31)
[2021-02-02] MEDS: PIPERACILLIN/TAZOBACTAM 4.5 GM in DEXTROSE 5% 100 ML IV SCH (03:43)
[2021-02-02] MEDS: DAPTOmycin 550 MG in SYRINGE 0 ML IV SCH (03:44)
[2021-02-02] MEDS: HEPARIN SOD 5,000 UNIT/0.5 ML VIAL SQ SCH ×2 (06:13→14:35)
[2021-02-02] MEDS: LEVOTHYROXINE SODIUM 100 MCG TABLET PO SCH (06:13)
[2021-02-02 09:06] LABS: Basophils # (auto) 0.02 K/uL (0-0.2); Basophils % (auto) 0.3 %; Eosinophils # (auto) 0.22 K/uL (0-0.5); Hematocrit (blood only) 41.5 % (37-47); Hemoglobin 13.5 g/dL (12.0-16.0); Immature Granulocytes # (auto) 0.01 K/uL (0.00-0.02); Immature Granulocytes % (auto) 0.1 %; Lymphocytes # (auto) 1.86 K/uL (1.2-3.4); Lymphocytes % (auto) 25.3 %; Mean Corpuscular Hemoglobin 29.8 pg (25-34); Mean Corpuscular Hgb Conc 32.5 g/dL (32-36); Mean Corpuscular Volume 91.6 fL (80-100); Mean Platelet Volume 10.1 fL (7.4-10.4); Monocytes # (auto) 0.57 K/uL (0.11-0.59); Monocytes % (auto) 7.8 %; Neutrophils # (auto) 4.66 K/uL (1.4-6.5); Neutrophils % (auto) 63.5 %; Platelet Count 255 K/uL (130-400); RDW Coefficient of Variation 14.8 % (11.5-14.5); Red Blood Count 4.53 M/uL (4.2-5.4); White Blood Count 7.34 K/uL (4.8-10.8)
[2021-02-02] MEDS: INSULIN ASPART 100 UNITS/ML 3 ML PEN SC SCH ×3 (09:31→17:44)
[2021-02-02] MEDS: lisinopril 20 MG TAB PO SCH (09:32)
[2021-02-02] MEDS: INSULIN GLARGINE SOLOSTAR 100 UNITS/ML 3 ML PEN SQ SCH (09:32)
[2021-02-02 09:40] LABS: Albumin Level 2.7 gm/dl (3.4-5.0); BUN Creatinine Ratio 15.1 (10-20); Calcium 8.2 mg/dl (8.5-10.1); Creatinine Clr Calc Pharmacy 120.6 ml/min; Est GFR (African American) 104.2 ml/min; Est GFR (Non-African American) 89.9 ml/min; Potassium 3.9 mmol/L (3.5-5.1)
[2021-02-02 09:43] LABS: Albumin Globulin Ratio 0.6 (0.9-2); Bilirubin,Total 0.9 mg/dl (0.2-1); Globulin 4.6 gm/dl (2.5-4.0); Total Protein 7.3 gm/dl (6.4-8.2)
--- NOTE | 2021-02-02 12:09 | Orthopedic Consultation ---
Date of Consultation February 02, 2021 Assessment & Plan (1) Diabetic foot ulcer with osteomyelitis: Left foot MRI shows fifth metatarsal and base of the right fifth toe proximal phalanx consistent with osteomyelitis. There is suggestion of abscess along the dorsal lateral aspect of the forefoot at the level of the fifth metatarsal head. Possible pathologic fracture at the neck of the fifth metatarsal. Osteitis without evidence for osteomyelitis within the distal phalanx of the first toe. Right foot MRI without definitely osteomyelitis but chronic appearing sclerosis of the lateral cortex of the 5th metarsal base. Will make patient NPO. Will order MRI of left ankle to evaluate heel/calcaneus. Will see if see if Dr Loyd also wants xrays. Will discuss in detail with Rach. Patient aware will more than likely need surgical intervention to left LE. Dr Loyd will be in to see patient later today. Present on Admission?: Yes History of Present Illness Reason for Consultation: Diabetic foot ulcers B LE Requesting Physician: Dr Loyd Attending Physician: Pelon Lam MD History of Present Illness The patient is a 55-year-old female with past medical history including diabetes mellitus insulin dependent, hypothyroidism, diabetic neuropathy, vitamin D deficiency, hyperlipidemia, fatty liver, leiomyoma of uterus, hypertension, and obesity. She was referred to the emergency department by her outpatient physician due to concerns regarding diabetic foot ulcers. She states that the ulcerations have been going on for about 2 months. She eventually saw her primary care physician who referred her to podiatry. Podiatry got xrays and were going to start antibiotics but after review of xrays told patient to go to the ED. because of a bone infection based on the x-rays. She states her blood sugars has been in the 200s for the most part. She does have chronic diarrhea from her medications. She was admitted to medicine and started on IV antibiotics. MRI's of both feet were performed. Patient is walking in her room. She has breakfast. She denies f/c/s. Allergies Allergy/AdvReac Type Severity Reaction Status Date / Time No Known Drug Allergies AdvReac Unknown Unknown Verified 01/30/21 23:34 Home Medications Medication Instructions Recorded Confirmed Type pen needle, diabetic 31 gauge x #100 ea 02/04/20 10/31/20 Rx 3/16" (BD Ultra-Fine Mini Pen Needle) lancets 33 gauge (OneTouch Delica See Rx Instructions .ROUTE 09/08/20 10/31/20 Rx Lancets) .COMPLEX #100 unspecified levothyroxine 100 mcg tablet 100 mcg PO DAILY #30 tab 09/08/20 01/30/21 Rx blood-glucose meter (OneTouch #1 ea 09/12/20 10/31/20 Rx Verio Meter) metformin 500 mg tablet 500 mg PO DAILY #30 tab 09/15/20 01/30/21 Rx blood sugar diagnostic (OneTouch ea 10/27/20 10/31/20 History Verio test strips) methocarbamol 750 mg tablet 750 mg PO .COMPLEX #30 tab 10/31/20 01/30/21 Rx insulin aspart U-100 100 unit/mL 0 unit SQ AC 01/30/21 01/30/21 History (3 mL) subcutaneous pen (Novolog Flexpen U-100 Insulin aspart) insulin glargine 100 unit/mL (3 40 unit SQ BID 01/30/21 01/30/21 History mL) subcutaneous pen (Lantus Solostar U-100 Insulin) lisinopril 20 mg tablet 20 mg PO DAILY 01/30/21 01/30/21 History simvastatin 20 mg tablet 20 mg PO HS 01/30/21 01/30/21 History Patient History Medical History Diabetes Hyperlipidemia Hypertension Hypothyroidism Neuropathy, diabetic Well adult Surgical History History of hysterectomy Family History Denies family history of Ovarian cancer Prostate cancer Myocardial infarction Breast cancer Colorectal cancer Social History Smoking Status: Never smoker Second Hand Exposure: No; Hx Alcohol Use: Yes Alcohol Intake Frequency: Monthly or Less Hx Substance Use: No Communication Ability: Effective Beliefs That Will Affect Care: None marital status: Current Living Situation: Spouse current occupational status: unemployed Feels Safe at Home: Yes caffeine: Yes Dental Care, Regularly: No Physical Activity Frequency: Does not Exercise Seatbelt Use: always Sunscreen Use: Yes Assistive Devices: Glasses Review of Systems Review of Systems: positive for generalized numbness in legs, pain left heel, open wounds bilateral feet. otherwise 14 point ROS reviewed and negative. Physical Exam Physical Exam: Musculoskeletal: Left LE: Silver dollar sized diabetic ulcer to the left heel which is foul-smelling and draining. Smaller sized ulcerations over the dorsal aspect left fifth metatarsal head and proximal phalanx. This has no foul odor but slight drainage. Right LE: There is a ulceration over the right lateral aspect of the foot over the fifth metatarsal. No discharge is noted. Bilateral legs with hemosiderin staining. Palpable DP and PT pulses. Sensation is altered diffusely. Able to wiggle toes and ankles with 5/5 EHL, TA, and gastroc strength. Neg homans, calves are soft. Capillary refill 3+. Poor nail hygeine. Results & Data ([facility]) Vital Signs (Past 12 Hours) Vital Signs Temp Pulse Resp BP Pulse Ox 02/02/21 06:47 36.8 C 98 H 18 146/81 H 93 Laboratory Results 02/02/21 02/02/21 02/02/21 Range/Units 12:02 08:31 08:31 WBC 7.34 (4.8-10.8) K/uL RBC 4.53 (4.2-5.4) M/uL Hgb 13.5 (12.0-16.0) g/dL Hct 41.5 (37-47) % MCV 91.6 (80-100) fL MCH 29.8 (25-34) pg MCHC 32.5 (32-36) g/dL RDW Std Deviation 50.0 H (36.4-46.3) fL RDW Coeff of Jose 14.8 H (11.5-14.5) % Plt Count 255 (130-400) K/uL MPV 10.1 (7.4-10.4) fL Immature Gran % (Auto) 0.1 % Neut % (Auto) 63.5 % Lymph % (Auto) 25.3 % [place] % (Auto) 7.8 % Eos % (Auto) 3.0 % Baso % (Auto) 0.3 % Neut # (Auto) 4.66 (1.4-6.5) K/uL Lymph # (Auto) 1.86 (1.2-3.4) K/uL [place] # (Auto) 0.57 (0.11-0.59) K/uL Eos # (Auto) 0.22 (0-0.5) K/uL Baso # (Auto) 0.02 (0-0.2) K/uL Immature Gran # (Auto) 0.01 (0.00-0.02) K/uL Sodium 138 (136-145) mmol/L Potassium 3.9 (3.5-5.1) mmol/L Chloride 107 (98-107) mmol/L Carbon Dioxide 24 (21-32) mmol/L Anion Gap 6.0 (3-11) BUN 11 (7-18) mg/dl Creatinine 0.74 (0.6-1.2) mg/dl Est Cr Clr Drug Dosing 120.6 ml/min Est GFR ( Amer) 104.2 ml/min Est GFR (Non-Af Amer) 89.9 ml/min BUN/Creatinine Ratio 15.1 (10-20) Glucose 127 H (70-99) mg/dl POC Glucose 205 H (70-99) mg/dl Calcium 8.2 L (8.5-10.1) mg/dl Total Bilirubin 0.9 (0.2-1) mg/dl AST 40 H (15-37) U/L ALT 44 (12-78) U/L Alkaline Phosphatase 107 (45-117) U/L Total Protein 7.3 (6.4-8.2) gm/dl Albumin 2.7 L (3.4-5.0) gm/dl Globulin 4.6 H (2.5-4.0) gm/dl Albumin/Globulin Ratio 0.6 L (0.9-2) 02/02/21 02/01/21 02/01/21 Range/Units 07:51 20:31 17:18 WBC (4.8-10.8) K/uL RBC (4.2-5.4) M/uL Hgb (12.0-16.0) g/dL Hct (37-47) % MCV (80-100) fL MCH (25-34) pg MCHC (32-36) g/dL RDW Std Deviation (36.4-46.3) fL RDW Coeff of Jose (11.5-14.5) % Plt Count (130-400) K/uL MPV (7.4-10.4) fL Immature Gran % (Auto) % Neut % (Auto) % Lymph % (Auto) % [place] % (Auto) % Eos % (Auto) % Baso % (Auto) % Neut # (Auto) (1.4-6.5) K/uL Lymph # (Auto) (1.2-3.4) K/uL [place] # (Auto) (0.11-0.59) K/uL Eos # (Auto) (0-0.5) K/uL Baso # (Auto) (0-0.2) K/uL Immature Gran # (Auto) (0.00-0.02) K/uL Sodium (136-145) mmol/L Potassium (3.5-5.1) mmol/L Chloride (98-107) mmol/L Carbon Dioxide (21-32) mmol/L Anion Gap (3-11) BUN (7-18) mg/dl Creatinine (0.6-1.2) mg/dl Est Cr Clr Drug Dosing ml/min Est GFR ( Amer) ml/min Est GFR (Non-Af Amer) ml/min BUN/Creatinine Ratio (10-20) Glucose (70-99) mg/dl POC Glucose 124 H 142 H 133 H (70-99) mg/dl Calcium (8.5-10.1) mg/dl Total Bilirubin (0.2-1) mg/dl AST (15-37) U/L ALT (12-78) U/L Alkaline Phosphatase (45-117) U/L Total Protein (6.4-8.2) gm/dl Albumin (3.4-5.0) gm/dl Globulin (2.5-4.0) gm/dl Albumin/Globulin Ratio (0.9-2) Diagnostic Findings MR foot RT w/o con HISTORY: 55 years-old Female both feet have wounds, r/o osteo patient presents with chronic nonhealing ulcers of the right foot COMPARISON: Right foot radiographs 01/30/2021 TECHNIQUE: Multiplanar multisequence MRI of the right foot was obtained without the use of IV contrast FINDINGS: There is a 3.5 x 2.0 cm soft tissue ulcer of the lateral midfoot/forefoot junc tion superficial to the base of the fifth metatarsal. Associated skin thickening with subcutaneous edema suggestive of cellulitis. There is mild intrinsic atrophy of the musculature of the foot. This finding in conjunction with diffuse intramuscular edema is suggestive of chronic denervation changes. No drainable fluid collection. The imaged flexor and extensor tendons appear intact. The study is mildly motion degraded. The Lisfranc ligament appears intact. There is mild multifocal osteoarthritis. Mild hallux valgus. Sclerosis involving the lateral cortex of the proximal fifth metatarsal redemonstrated. No osseous erosions identified to suggest acute osteomyelitis. IMPRESSION: 1. Soft tissue ulcer of the lateral midfoot/forefoot junction with adjacent cellulitis. No drainable fluid collection. 2. Chronic appearing sclerosis involves the lateral cortex of the fifth metatarsal base. There is no evidence of acute osteomyelitis. 3. Chronic denervation changes. MR foot LT w/o con HISTORY: Abnormal left foot radiograph. both feet have wounds, r/o osteo TECHNIQUE: Multiplanar multisequence MRI of the left forefoot was performed without contrast according to standard departmental protocol. COMPARISON STUDY: Left foot radiograph 01/30/2021. FINDINGS: There is extensive subcutaneous and deep soft tissue edema seen throughout the visualized forefoot. Abnormal marrow signal intensity and cortical destruction within the majority of the fifth metatarsal and base of the right fifth toe proximal phalanx consistent with an osteomyelitis. There is a possible pathologic fracture at the neck of the fifth metatarsal. Best seen on axial image 17 there is a T2 hyperintense lobular tissue focus which partially surrounds the head of the fifth metatarsal. This measures 2.8 x 1.5 cm and demonstrates internal septations. This may represent a soft tissue abscess. There is also marrow edema without abnormal T1 signal or cortical destruction within the distal findings the right first toe. This favors an osteitis. No evidence for osteomyelitis at this time. The Lisfranc joint is intact. Soft tissue wound at the dorsal lateral aspect of the fifth MTP joint. IMPRESSION: 1. Abnormal marrow signal and cortical destruction within the majority of the fifth metatarsal and base of the right fifth toe proximal phalanx consistent with osteomyelitis. 2. There is suggestion of a 2.8 x 1.5 cm abscess along the dorsal lateral aspect of the forefoot at the level of the fifth metatarsal head. 3. Possible pathologic fracture at the neck of the fifth metatarsal. 4. Osteitis without evidence for osteomyelitis within the distal phalanx of the first toe.
[2021-02-02] MEDS ORDERED: Nursing to Pharmacy Communication SCH (12:45)
[2021-02-02] MEDS: ceFAZolin 2000MG 2,000 MG/15 ML SYR IV SCH ×2 (12:48→19:37)
--- NOTE | 2021-02-02 15:15 | Progress Notes ---
DATE OF NOTE: 02/02/2021 HISTORY OF PRESENT ILLNESS: Patient seen in conjunction with Julianne Sarmiento and Mecca Estrada. Please refer to her note for further details. Seen and evaluated together. Agree with plan. The patient has had wounds on both of her feet. It does not sound like she has had very robust diabe tic foot care. The wounds have been present for months. She is very sparse with historical details. She was being seen by a hat ironer and eventually ended up here in the hospital. She is afebrile. Vital signs are noted, slight tachycardia and slight hypertension. Her white count is normal. Hemoglobin 13, hematocrit 41, platelets are 255 today, PRP is noted. Albumin 2.7. Cult ures of both foot wounds are growing out multiple bacteria including Proteus, gram-negative bacilli a nd Staphylococcus aureus. Blood cultures are negative. Her past history consists of diabetes with neuropathy, hypertension. Reviewed and noted. She has ne melissa had prior foot injury, surgeries or infections. Dorsalis pedis is 2+ bilaterally. Posterior tibial are nonpalpable. They are changed in the lower l egs consistent with chronic venous stasis disease. Both feet look relatively well aligned, although there is a little bit of forefoot varus on the right. She has good movement of the ankle and limited movement of subtalar joints bilaterally. Silverskiold test is negative and there are no lesser toe deformities. On the right foot, there is a 1.5 cm ulceration laterally and another one plantarly in a tiddsq-dt-in ght fashion, centering over the base of the fifth metatarsal. Because of underlying bone prominence pressure is noted. With the patient's permission, these are debrided. Overlying eschar and hyperkeratotic areas are octavio rided leaving wounds that are about 2 cm in diameter with a central 1 to 1.5 cm granulating base and no exposed bone. No sinus and no drainage. No surrounding erythema and no tenderness. She reports grossly intact sensation bilaterally. Examination of the left foot reveals a wound on the dorsum of the foot just proximal to the fifth MTP joint. Minimal surrounding erythema, but there is some ooze coming out. The wounds are a couple mi llimeters in diameter with some intervening unhealthy skin. Again with her permission, these are debr ided, leaving a wound that is 2 cm long, 1 cm wide, full thickness down to the extensor area. Comment on MRI regarding abscess in this area is explored, evacuated, debrided and irrigated. A 250 mL ster ile normal saline. Crepitation noted. Minimal swelling in the foot area. There is a large necrotic area on the heel with in situ fatt y tissue. Again with her permission, this is debrided sharply using a scalpel and scissors. This was resected down to healthy tissue. There is no exposed bone and no soft bone. The periosteum is inta ct. There is good bleeding throughout. The area was thoroughly debrided in a sharp and blunt fashio n using the scalpel, scissors and pickups. No abscess is noted. No purulence. Aquacel Ag, gauze, ABDs, and Caridad wrap applied. MRI of the left hindfoot is pending. MRI of the right foot shows the wound, but no osteomyelitis. X -rays of the right foot shows wound, but no fractures or evidence of osteomyelitis. Radiographs of t he left foot show chronic changes in the fifth metatarsal, particularly at the metatarsophalangeal segun int consistent with osteomyelitis. MRI is reviewed, and also on the left forefoot demonstrating evid ence of osteomyelitis within the fifth ray. ASSESSMENT: 1. Diabetic right foot wound. 2. Left foot fifth ray osteomyelitis with large heel wound. PLAN: Findings are discussed. In regards to the right foot, I recommend a debridement and offloadin g. I think with this it can be healed, as she appears to have adequate circulation. Evaluation of t he left foot is consistent with osteomyelitis. I would recommend a fifth ray resection to adequately treat this followed by offloading and appropriate antibiotic therapy. In regards to the heel wound, I think this can be treated with a wound VAC. There is no exposed bone . We will see what the radiographic findings are, and hopefully there is not any osteomyelitis. Off loading will be necessary. She will continue with her IV antibiotics. She is educated about the proposed procedure, debridement of both feet, left foot fifth ray resection and left foot wound VAC. Options discussed. Risks, benefits reviewed and at this point, she is con templating whether or not she would like to have surgery. We will place her on the schedule for nancy rrow in case she agrees. N.p.o. after midnight, hold heparin. Continue IV antibiotics. Nonweightbe aring bilaterally, offloading. Job ID: [id number]
--- NOTE | 2021-02-02 17:03 | Hospitalist Progress Note ---
Date of Service February 02, 2021 Assessment & Plan (1) Diabetic foot ulcer with osteomyelitis: Plan: Osteomyelitis left calcaneus and left first MTP, proximal phalanx of the left fifth toe. Osteomyelitis of right fifth MTP that is most likely chronic but could also possibly have an acute component is draining and with foul smell Place on vancomycin IV and Zosyn IV per pharmacokinetic monitoring Patient will likely need a PICC line placed for extended course of antibiotics left foot MRI 1. Abnormal marrow signal and cortical destruction within the majority of the fifth metatarsal and base of the right fifth toe proximal phalanx consistent with osteomyelitis. 2. There is suggestion of a 2.8 x 1.5 cm abscess along the dorsal lateral aspect of the forefoot at the level of the fifth metatarsal head. 3. Possible pathologic fracture at the neck of the fifth metatarsal. 4. Osteitis without evidence for osteomyelitis within the distal phalanx of the first toe. right foot without definitely osteomyelitis but chronic appearing sclerosis of the lateral cortex of the 5th metatarsal base -> Evaluated by Dr. Loyd on 02/02 with recommendations for: * Right foot debridement and offloading * Left 5th ray resection * Left heel wound VAC * Left heel MRI Discussed with patient today. She does not appear to understand what Dr. Loyd's recommendations are. She reports she would "like to try the VAC." When I explained that this wouldn't heal her infected bone, she seemed a bit defensive or in denial. I discussed that we could spend some time thinking about it. (2) Diabetes: Plan: Continue insulin glargine 40 units subcu twice daily. Place on Accu-Cheks before meals and at bedtime with NovoLog coverage per scale Check hemoglobin A1c Hold Metformin - Hold insulin tonight in case she does elect to proceed with surgery. (3) Hypothyroidism: Plan: Continue levothyroxine 100 mcg daily (4) Neuropathy, diabetic: Plan: Significant decrease sensation, allowing progression of significant ulceration and osteomyelitis without significant pain appreciated (5) Hyperlipidemia: Plan: Continue simvastatin 20 mg at bedtime (6) Fatty liver: Plan: Follow serial laboratories (7) Hypertension: Plan: Continue lisinopril Admission and Anticipated Discharge Date Admission Date: January 30, 2021 Subjective No complaints today. Is overall doing well. Reports no fevers/chills, chest pain, shortness of breath, abdominal pain, nausea, or vomiting. Physical Exam Constitutional: WD/WN, vitals as above Eyes: EOM intact bilaterally; no conjunctival abnormality ENMT: external ear and nose normal, oropharynx normal Neck: trachea midline, no thyromegaly normal visual inspection Respiratory: normal respiratory effort, lungs clear to auscultation no respiratory distress Cardiovascular: RRR, no murmur, no edema Gastrointestinal (Abdomen): Inspection/Auscultation: abdomen normal to inspection; abdomen not distended Musculoskeletal: no cyanosis or clubbing, extremities motor strength 5/5 Skin: no rashes, warm and dry Neurologic: moves all extremities and awake Psychiatric: Orientation: alert, oriented to person and cooperative Results & Data Results & [facility] ([facility]) Vital Signs (Past 12 Hours) Vital Signs Temp Pulse Resp BP BP Pulse Ox 02/02/21 15:31 36.7 C 81 16 159/66 H 94 02/02/21 06:47 36.8 C 98 H 18 146/81 H 93 PG Care Time/CCT Total # of Minutes Spent Total Time Spent with Patient: Total time spent is greater than 50% in coordination of care (as documented) at patient's floor/unit and/or counseling patient: Coding Level of Care Code 67465 Subseq Hosp Care Lvl 2 Diagnoses Diabetic foot ulcer with osteomyelitis E11.621; E11.69; L97.509; M86.9 Diabetes E11.9 Hypothyroidism E03.9 Neuropathy, diabetic E11.40 Hyperlipidemia E78.5 Fatty liver K76.0 Hypertension I10
--- NOTE | 2021-02-02 22:11 | Magnetic Resonance Report ---
MR ankle LT wo con CLINICAL HISTORY: 55 years-old Female with osteomyelitis left heel. Chronic bilateral foot wounds wi th osteomyelitis COMPARISON: MRI left foot 01/31/2021, left foot radiographs 01/30/2021 TECHNIQUE: Multiplanar, multi sequence MRI of the left ankle was performed without contrast. FINDINGS: LATERAL LIGAMENT COMPLEX: The anterior talofibular ligament, calcaneofibular ligament and posterior t alofibular ligaments are intact. SYNDESMOTIC LIGAMENTS: The anterior-inferior tibiofibular ligament, interosseous membrane and posteri or-inferior tibiofibular ligaments are intact. DELTOID LIGAMENT COMPLEX: The superficial and deep components of the deltoid ligament are intact. ANTERIOR TENDONS: The tibialis anterior, extensor hallucis longus and extensor digitorum longus tendo ns are normal in position, morphology and signal. LATERAL TENDONS: Moderate tendinosis of the peroneus longus and brevis. Intermediate to high-grade sp lit tear of the peroneus brevis malleolar and inframalleolar segment with trace associated tenosynovi tis. MEDIAL TENDONS: The posterior tibialis, flexor digitorum longus and flexor hallucis longus tendons ar e intact. Mild tenosynovitis of the tibialis posterior. PLANTAR FASCIA: Mild thickening of the medial plantar fascial bundle suggestive of chronic fasciitis. No evidence of plantar fascial nodules. ACHILLES TENDON: Moderate tendinosis of the Achilles tendon with trace pre-Achilles bursitis. SINUS TARSI: Edema within the sinus tarsi. The interosseous and cervical ligaments are normal. The na vicular-calcaneal (spring) ligament is without acute abnormality. TARSAL TUNNEL: There are no obstructing lesions within the tarsal tunnel. BONE MARROW: 4.4 x 3.3 cm soft tissue ulcer of the heel containing fluid and air. Moderate adjacent c ellulitis changes. No drainable fluid collection. There is osteomyelitis involving the posterior late ral cortex of the calcaneus measuring up to approximately 2.5 x 2.2 cm in greatest dimension. Sensiti ve bone marrow edema of the calcaneus. Mild to moderate nonspecific marrow edema within the midfoot i s partially imaged. Osteomyelitis of the fifth metatarsal is partially imaged. Mild multifocal osteoa rthritis. Diffuse soft tissue and intramuscular edema with muscular atrophy is suggestive of denervation change s. IMPRESSION: 1. 4.4 x 3.3 cm soft tissue ulcer of the heel with osteomyelitis redemonstrated involving the postero lateral aspect of the calcaneus. 2. Cellulitis without abscess. 3. Partially imaged osteomyelitis of the fifth metatarsal, better characterized on the MRI study from 01/31/2021. 4. Additional findings as above. ACT 112: Negative or not required by law. The above report was generated using voice recognition software. It may contain grammatical, syntax o r spelling errors. Electronically signed by: Parminder Steinberg M.D. 02/02/2021 10:10 PM
[2021-02-02] MEDS: SIMVASTATIN 20 MG TAB PO SCH (22:14)
[2021-02-03] MEDS: INSULIN ASPART 100 UNITS/ML 3 ML PEN SC SCH ×4 (01:06→18:30)
[2021-02-03] MEDS: ceFAZolin 2000MG 2,000 MG/15 ML SYR IV SCH ×3 (05:27→20:23)
[2021-02-03] MEDS: LEVOTHYROXINE SODIUM 100 MCG TABLET PO SCH (05:28)
--- NOTE | 2021-02-03 07:21 | Anesthesiology Consultation ---
Date of Service February 03, 2021 Assessment & Plan Chart Review Chart Review: Acceptable Risk for Surgery and Patient NOT seen in Pre Admission Testing Consults Requested none ASA ASA4 Proposed Anesthesia Anesthesia Type: General History Surgery Operation Date: 02/03/21 09:30 Proposed Procedures p Left 4th and 5th Toe Resection, Possible Wound Vac - Cesario Loyd MD s Bilateral Foot Wound Debridement - Cesario Loyd MD Height/Weight Height: 5 ft 6 in Weight: 138.7 kg Allergies Allergy/AdvReac Type Severity Reaction Status Date / Time No Known Drug Allergies AdvReac Unknown Unknown Verified 01/30/21 23:34 Medications Home Medications Medication Instructions Recorded Confirmed Last Taken pen needle, diabetic 31 gauge x #100 ea 02/04/20 10/31/20 Unknown 3/16" (BD Ultra-Fine Mini Pen Needle) lancets 33 gauge (OneTouch Delica See Rx Instructions .ROUTE 09/08/20 10/31/20 Unknown Lancets) .COMPLEX #100 unspecified levothyroxine 100 mcg tablet 100 mcg PO DAILY #30 tab 09/08/20 01/30/21 01/30/21 blood-glucose meter (OneTouch #1 ea 09/12/20 10/31/20 Unknown Verio Meter) metformin 500 mg tablet 500 mg PO DAILY #30 tab 09/15/20 01/30/21 01/30/21 blood sugar diagnostic (OneTouch ea 10/27/20 10/31/20 Unknown Verio test strips) methocarbamol 750 mg tablet 750 mg PO .COMPLEX #30 tab 10/31/20 01/30/21 01/30/21 insulin aspart U-100 100 unit/mL 0 unit SQ AC 01/30/21 01/30/21 Unknown (3 mL) subcutaneous pen (Novolog Flexpen U-100 Insulin aspart) insulin glargine 100 unit/mL (3 40 unit SQ BID 01/30/21 01/30/21 01/30/21 mL) subcutaneous pen (Lantus Solostar U-100 Insulin) lisinopril 20 mg tablet 20 mg PO DAILY 01/30/21 01/30/21 01/30/21 simvastatin 20 mg tablet 20 mg PO HS 01/30/21 01/30/21 01/30/21 Active Medications Generic Name Dose Route Start Last Admin Trade Name Freq PRN Reason Stop Dose Admin Acetaminophen 650 mg 01/31/21:56 02/02/21 19:31 Acetaminophen 325 Mg Tab PO 03/02/21 01:55 650 mg Q4H PRN Administration pain/fever Cefazolin Sodium 2,000 mg in 15 mls @ 3.75 mls/min 02/02/21 12:00 02/03/21 05:27 Ancef 2000mg IV 03/16/21 11:59 3.75 mls/min Q8H AB Administration Protocol Insulin Aspart 0 units 02/02/21 12:00 02/03/21 06:51 Insulin Aspart 100 Units/Ml 3 Ml Pen SC 03/04/21 11:59 Not Given Q6 AB Insulin Glargine 40 units 01/31/21 02:30 02/02/21 09:32 Insulin Glargine Solostar 100 Units/Ml 3 Ml Pen SQ 03/02/21 02:29 40 units BID AB Administration Levothyroxine Sodium 100 mcg 01/31/21 06:30 02/03/21 05:28 Levothyroxine Sodium 100 Mcg Tablet PO 03/02/21 06:29 100 mcg DAILYBB AB Administration Lisinopril 20 mg 01/31/21 09:00 02/02/21 09:32 Lisinopril 20 Mg Tab PO 03/02/21 08:59 20 mg DAILY AB Administration Simvastatin 20 mg 01/31/21 21:00 02/02/21 22:14 Simvastatin 20 Mg Tab PO 03/02/21 20:59 20 mg HS AB Administration NPO Date Last Intake of Fluids: 02/02/21 Time Last Intake of Fluids: 23:59 Date Last Intake of Solids: 02/02/21 Time Last Intake of Solids: 23:59 Past Medical History Medical History Diabetes Hyperlipidemia Hypertension Hypothyroidism Neuropathy, diabetic Well adult Exercise / Class Metabolic Activity III < 4 Walking/Shop/Light housework Past Family History Family History Denies family history of Ovarian cancer Prostate cancer Myocardial infarction Breast cancer Colorectal cancer Past Surgical History Surgical History History of hysterectomy Past Anesthesia History No Hx of Anesthesia Complications and No Family Hx of Anesthesia Complications History of PONV No Hx of PONV and No Hx of Motion Sickness Social History Smoking Status: Never smoker Hx Alcohol Use: Yes alcohol intake frequency: holidays/special occasions only Hx Substance Use: No Physical Exam Vital Signs Last Vital Signs Temp 36.7 C 02/02/21 22:22 Pulse 83 02/02/21 22:22 Resp 16 02/02/21 22:22 BP 136/83 02/02/21 22:22 Pulse Ox 96 02/02/21 22:22 Testing Laboratory Results 02/02/21 08:31 02/02/21 08:31 Hemoglobin A1c 10.5 % (4.5-5.6) H 01/30/21 22:48 01/30/21 22:48 Aerobic Blood Culture - Preliminary Blood No growth in Aerobic bottle after 48 hours. Anaerobic Blood Culture - Preliminary No growth in Anaerobic bottle after 48 hours. 01/30/21 22:49 Aerobic Blood Culture - Preliminary Blood No growth in Aerobic bottle after 48 hours. Anaerobic Blood Culture - Final 02/03/21 02/03/21 05:36 00:01 POC Glucose 137 H 174 H
[2021-02-03 08:18] LABS: Hematocrit (blood only) 41.7 % (37-47); Hemoglobin 13.7 g/dL (12.0-16.0); Mean Corpuscular Hgb Conc 32.9 g/dL (32-36); Mean Corpuscular Volume 91.2 fL (80-100); Mean Platelet Volume 10.1 fL (7.4-10.4); Platelet Count 262 K/uL (130-400); RDW Coefficient of Variation 14.8 % (11.5-14.5); RDW Standard Deviation 49.5 fL (36.4-46.3); Red Blood Count 4.57 M/uL (4.2-5.4); White Blood Count 6.87 K/uL (4.8-10.8)
[2021-02-03 08:47] LABS: BUN Creatinine Ratio 19.4 (10-20); Calcium 8.4 mg/dl (8.5-10.1); Creatinine Clr Calc Pharmacy 156.5 ml/min; Est GFR (African American) 119.3 ml/min; Est GFR (Non-African American) 102.9 ml/min; Potassium 3.9 mmol/L (3.5-5.1)
--- NOTE | 2021-02-03 09:24 | Hospitalist Progress Note ---
Date of Service February 03, 2021 Assessment & Plan (1) Diabetic foot ulcer with osteomyelitis: Plan: Osteomyelitis left calcaneus and left first MTP, proximal phalanx of the left fifth toe. Osteomyelitis of right fifth MTP that is most likely chronic but could also possibly have an acute component is draining and with foul smell Place on vancomycin IV and Zosyn IV per pharmacokinetic monitoring Patient will likely need a PICC line placed for extended course of antibiotics left foot MRI 1. Abnormal marrow signal and cortical destruction within the majority of the fifth metatarsal and base of the right fifth toe proximal phalanx consistent with osteomyelitis. 2. There is suggestion of a 2.8 x 1.5 cm abscess along the dorsal lateral aspect of the forefoot at the level of the fifth metatarsal head. 3. Possible pathologic fracture at the neck of the fifth metatarsal. 4. Osteitis without evidence for osteomyelitis within the distal phalanx of the first toe. right foot without definitely osteomyelitis but chronic appearing sclerosis of the lateral cortex of the 5th metatarsal base -> Evaluated by Dr. Loyd on 02/02 with recommendations for: * After review of heel MRI recommendations now are to proceed a below the knee amputation which the patient is not in agreement with. * Discussed with patient and her 731. She does not appear to understand, she does not understand the severity of the exposed bone on her calcaneus and the inability to cover this. When it was explained that the VAC and antibiotics would likely not I her infected bone, she seemed a bit defensive or in denial. She would stare off in the room and not make eye contact. I discussed that we could spend some time thinking about it.. Dr. Stalin Whyte will discuss with the patient once again in the morning on 02/04/2021 (2) Diabetes: Plan: Continue insulin glargine 40 units subcu twice daily. Place on Accu-Cheks before meals and at bedtime with NovoLog coverage per scale Check hemoglobin A1c Holding Metformin - Hold insulin tonight in case she does elect to proceed with surgery. (3) Hypothyroidism: Plan: Continue levothyroxine 100 mcg daily (4) Neuropathy, diabetic: Plan: Significant decrease sensation, allowing progression of significant ulceration and osteomyelitis without significant pain appreciated (5) Hyperlipidemia: Plan: Continue simvastatin 20 mg at bedtime (6) Fatty liver: Plan: Follow serial laboratories (7) Hypertension: Plan: Continue lisinopril Admission and Anticipated Discharge Date Admission Date: January 30, 2021 Subjective Patient seems to be in shock and disillusionment regarding the severity of infection to her foot particularly the left foot. Is evidence of osteomyelitis of the calcaneus and the fifth metatarsal with a possible abscess along the metatarsal shaft, additionally she is got an open ulceration on the right foot without evidence of osteomyelitis but with cortical sclerosis seen on bone. Orthopedics has evaluated her and feels that there is no minimal solution with exception of below the knee amputation on the left side. Is based upon exposure of the calcaneus without any ability to have tissue coverage. However the patient has at this point time refused surgery wishing to try to have a more conservative route for limb salvage. Review of Systems Review of Systems: Mild distress and fatigue no headache, no visual changes no speech or swallowing issues no chest pain, pressure or palpitations no shortness of breath, cough or wheezes no abdominal pain, nausea or vomiting, diarrhea or constipation no dysuria, hematuria or frequency Neuropathy prevents significant amount of pain but she does have open draining areas to both feet bilaterally no back pain, CVA tenderness or radicular pain Open draining ulcers to both feet and the lateral aspect and heels no focal signs of weakness or numbness or altered sensation no complaints of anxiety or depression.. Results & Data Results & Data ([facility]) Vital Signs (Past 12 Hours) Vital Signs Temp Pulse Resp BP Pulse Ox 02/03/21 07:29 98.8 F 88 16 123/77 95 02/02/21 22:22 98.1 F 83 16 136/83 96 PG Care Time/CCT Total # of Minutes Spent Total Time Spent with Patient: Total time spent is greater than 50% in coordination of care (as documented) at patient's floor/unit and/or counseling patient: Coding Level of Care Code 08958 Subseq Hosp Care Lvl 3 Diagnoses Diabetic foot ulcer with osteomyelitis E11.621; E11.69; L97.509; M86.9 Diabetes E11.9 Hypothyroidism E03.9 Neuropathy, diabetic E11.40 Hyperlipidemia E78.5 Fatty liver K76.0 Hypertension I10
[2021-02-03] MEDS: lisinopril 20 MG TAB PO SCH ×2 (10:28→11:15)
--- NOTE | 2021-02-03 11:15 | Progress Notes ---
DATE OF SERVICE: 02/03/2021 The MRI of her calcaneus was reviewed and demonstrates bony erosion consistent with osteomyelitis of the calcaneus. I inspected her heel wound, which looks much better, but there is a large area of exp osed calcaneus. The wound itself was about 5-6 cm in diameter. I discussed the situation with Dr. Hubbard at [facility] and sent him some secure images and photographs . There is a remote option for partial calcanectomy and procedure to preserve the foot. Based upon the information provided, he did not think that that would be a viable option. I think a sophisticat ed treatment like that would be difficult. Unfortunately, given the circumstances with the heel wound in particular, I think the only viable alfonso gical solution is going to be a below-knee amputation. I had a discussion with Felicity regarding this. I do not think that antibiotics, wound care or wound VAC is going to solve this situation. I discus sed with her that the bone could not be left exposed to the outside world and needs to have soft tiss ue coverage in order for these other treatments to be effective. Certainly, this is a lot for her to take in and process. She does not want to have surgery. We took her off the OR schedule today. He r options are to do nothing or do the wound care treatments, which I do not think is a viable option. She could get another opinion regarding her wound treatment or have a below-knee amputation. We ta lked about getting a prosthesis and that being a functional situation allowing her to ambulate, likel y with some degree of assistance. We will place her on the OR schedule for tomorrow and she is going to discuss things with her later today and we will be in touch about further decision making . Job ID: [id number]
[2021-02-03] MEDS ORDERED: Nursing to Pharmacy Communication SCH (20:00)
[2021-02-03] MEDS: SIMVASTATIN 20 MG TAB PO SCH (20:24)
[2021-02-03] MEDS: CIPROFLOXACIN 500 MG TAB PO SCH (20:27)
[2021-02-03] MEDS ORDERED: INSULIN ASPART 100 UNITS/ML 3 ML PEN SC ONE (21:00)
[2021-02-03] MEDS: MICONAZOLE NITRATE POWDER 43 GM EXT PRN (21:46)
[2021-02-04] MEDS: LEVOTHYROXINE SODIUM 100 MCG TABLET PO SCH (03:39)
[2021-02-04] MEDS: ceFAZolin 2000MG 2,000 MG/15 ML SYR IV SCH ×3 (03:39→20:23)
[2021-02-04] MEDS ORDERED: Nursing to Pharmacy Communication SCH ×2 (05:45→18:15)
[2021-02-04] MEDS: INSULIN ASPART 100 UNITS/ML 3 ML PEN SC SCH ×5 (06:04→21:51)
[2021-02-04 06:55] LABS: Basophils # (auto) 0.02 K/uL (0-0.2); Basophils % (auto) 0.2 %; Eosinophils # (auto) 0.24 K/uL (0-0.5); Eosinophils % (auto) 2.6 %; Hematocrit (blood only) 42.8 % (37-47); Hemoglobin 14.3 g/dL (12.0-16.0); Immature Granulocytes # (auto) 0.02 K/uL (0.00-0.02); Immature Granulocytes % (auto) 0.2 %; Lymphocytes # (auto) 1.53 K/uL (1.2-3.4); Lymphocytes % (auto) 16.5 %; Mean Corpuscular Hemoglobin 30.2 pg (25-34); Mean Corpuscular Hgb Conc 33.4 g/dL (32-36); Mean Corpuscular Volume 90.3 fL (80-100); Mean Platelet Volume 9.9 fL (7.4-10.4); Monocytes # (auto) 0.61 K/uL (0.11-0.59); Monocytes % (auto) 6.6 %; Neutrophils # (auto) 6.86 K/uL (1.4-6.5); Neutrophils % (auto) 73.9 %; Platelet Count 241 K/uL (130-400); RDW Coefficient of Variation 14.6 % (11.5-14.5); RDW Standard Deviation 47.8 fL (36.4-46.3); Red Blood Count 4.74 M/uL (4.2-5.4); White Blood Count 9.28 K/uL (4.8-10.8)
[2021-02-04 07:21] LABS: BUN Creatinine Ratio 16.7 (10-20); Calcium 8.3 mg/dl (8.5-10.1); Creatinine Clr Calc Pharmacy 127.5 ml/min; Est GFR (African American) 111.5 ml/min; Est GFR (Non-African American) 96.2 ml/min; Potassium 4.1 mmol/L (3.5-5.1)
--- NOTE | 2021-02-04 08:04 | Electrocardiogram Report ---
Test Reason : Blood Pressure : / mmHG Vent. Rate : 098 BPM Atrial Rate : 098 BPM P-R Int : 168 ms QRS Dur : 104 ms QT Int : 362 ms P-R-T Axes : 049 -19 083 degrees QTc Int : 462 ms Normal sinus rhythm Minor Non-specific intra-ventricular conduction delay Nonspecific ST and T wave abnormality Lateral leads Abnormal ECG No previous ECGs available Confirmed by Abhay Clemons ([id number]) on 02/04/2021 8:04:29 AM Referred By: Nirav Mcclellan Confirmed By:Abhay Clemons
[2021-02-04] MEDS: lisinopril 20 MG TAB PO SCH (09:13)
[2021-02-04] MEDS: CIPROFLOXACIN 500 MG TAB PO SCH ×2 (09:13→20:23)
--- NOTE | 2021-02-04 09:23 | Progress Notes ---
DATE OF NOTE: 02/04/2021. The patient is resting comfortably in bed. She offers no significant complaints. She is afebrile. Her vital signs are stable. White count normal, hemoglobin 14, hematocrit 43, platelets are 241. He r PRP is noted and is largely within normal limits. I spoke with the patient's yesterday on the phone and discussed with him my findings and moses mmendations. I have also spoken with Dr. Harris. I saw the patient twice this morning to find ou t what her wishes are and she wants to try wound care. I again have offered her surgery to treat her left leg. While treatments such as antibiotics and wound care are options, I do not think that they are very good options as they are highly unlikely to result in successful management of her foot pro blem. She has osteomyelitis of her calcaneus with a large open wound and exposed calcaneus. The bon e itself is not directly exposed, but it is down to the periosteum and there is erosion on the MRI. She has osteomyelitis of the fifth metatarsophalangeal joint and fifth metatarsal. Attempted to gath er insight regarding her reluctance to consider surgery. She appears significantly apprehensive, whi ch is understandable given the circumstances. We will go ahead and cancel her for the OR today. Wou nd care will be consulted. I would recommend use of appropriate wound care modalities including a wo und VAC and intravenous antibiotics as well as offloading. We will continue to monitor. My recommen dation is for a left below-knee amputation. Job ID: [id number]
--- NOTE | 2021-02-04 17:27 | Hospitalist Progress Note ---
Date of Service February 04, 2021 Assessment & Plan (1) Diabetic foot ulcer with osteomyelitis: Plan: Osteomyelitis left calcaneus and left first MTP, proximal phalanx of the left fifth toe. Osteomyelitis of right fifth MTP that is most likely chronic but could also poss ibly have an acute component is draining and with foul smell Place on vancomycin IV and Zosyn IV per pharmacokinetic monitoring Patient will likely need a PICC line placed for extended course of antibiotics left foot MRI 1. Abnormal marrow signal and cortical destruction within the majority of the fifth metatarsal and base of the right fifth toe proximal phalanx consistent with osteomyelitis. 2. There is suggestion of a 2.8 x 1.5 cm abscess along the dorsal lateral aspect of the forefoot at the level of the fifth metatarsal head. 3. Possible pathologic fracture at the neck of the fifth metatarsal. 4. Osteitis without evidence for osteomyelitis within the distal phalanx of the first toe. right foot without definitely osteomyelitis but chronic appearing sclerosis of the lateral cortex of the 5th metatarsal base -> Evaluated by Dr. Loyd on 02/02 with recommendations for: * After review of heel MRI recommendations now are to proceed a below the knee amputation which the patient is not in agreement with. * Discussed with patient and her 02/03. Again spoke to the patient on February 04 she does not appear to understand, she does not understand the severity of the exposed bone on her calcaneus and the inability to cover this. When it was explained that the VAC and antibiotics would likely not I her infected bone, she seemed a bit defensive or in denial. She would stare off in the room and not make eye contact. I discussed that we could spend some time thinking about it.. Dr. Loyd did discuss with the patient once again in the morning on 02/04/2021 she still on refusal of surgery Infectious disease consultation will be undertaken for appropriate IV antibiotic choice (2) Diabetes: Plan: Continue insulin glargine 40 units subcu twice daily. Place on Accu-Cheks before meals and at bedtime with NovoLog coverage per scale Check hemoglobin A1c Holding Metformin - Hold insulin tonight in case she does elect to proceed with surgery. (3) Hypothyroidism: Plan: Continue levothyroxine 100 mcg daily (4) Neuropathy, diabetic: Plan: Significant decrease sensation, allowing progression of significant ulceration and osteomyelitis without significant pain appreciated (5) Hyperlipidemia: Plan: Continue simvastatin 20 mg at bedtime (6) Fatty liver: Plan: Follow serial laboratories (7) Hypertension: Plan: Continue lisinopril Plan: Patient now [facility] [place] [facility] and instrument venous antibiotic administration. She understands this is not the best route. Admission and Anticipated Discharge Date Admission Date: January 30, 2021 Subjective Patient seems to be in shock and disillusionment regarding the severity of infection to her foot particularly the left foot. Is evidence of osteomyelitis of the calcaneus and the fifth metatarsal with a possible abscess along the metatarsal shaft, additionally she is got an open ulceration on the right foot without evidence of osteomyelitis but with cortical sclerosis seen on bone. Orthopedics has evaluated her and feels that there is no minimal solution with exception of below the knee amputation on the left side. Is based upon exposure of the calcaneus without any ability to have tissue coverage. However the patient has at this point time refused surgery wishing to try to have a more conservative route for limb salvage. Review of Systems Review of Systems: Mild distress and fatigue no headache, no visual changes no speech or swallowing issues no chest pain, pressure or palpitations no shortness of breath, cough or wheezes no abdominal pain, nausea or vomiting, diarrhea or constipation no dysuria, hematuria or frequency Neuropathy prevents significant amount of pain but she does have open draining areas to both feet bilaterally no back pain, CVA tenderness or radicular pain Open draining ulcers to both feet and the lateral aspect and heels no focal signs of weakness or numbness or altered sensation no complaints of anxiety or depression.. Physical Exam Physical Exam: The patient appeared obese no apparent distress Vital signs as documented. Head exam is normocephalic atraumatic Neck is without JVD, thyromegaly, or carotid bruits. Lungs are clear to auscultation, no focal loss of breath sounds Cardiac exam, Rhythm is regular.. No murmurs, rubs or gallops. Abdominal exam reveals normal bowel sounds, soft non tender, no masses Extremities are edematous, chronic venous stasis changes, open areas on both feet, foul smell from right, macerated tissue on left Neurologic exam is alert and oriented, no focal loss of strength distal neuropathy Skin is with chronic stasis discoloration Psychologically is without concerns for anxiety or depression Results & Data Results & Data ([facility]) Vital Signs (Past 12 Hours) Vital Signs Temp Pulse Resp BP Pulse Ox 02/04/21 15:20 98.2 F 97 H 20 152/85 H 95 02/04/21 07:30 97.7 F 91 H 20 139/80 96 PG Care Time/CCT Total # of Minutes Spent Total Time Spent with Patient: Total time spent is greater than 50% in coordination of care (as documented) at patient's floor/unit and/or counseling patient: Coding Level of Care Code 23434 Subseq Hosp Care Lvl 3 Diagnoses Diabetic foot ulcer with osteomyelitis E11.621; E11.69; L97.509; M86.9 Diabetes E11.9 Hypothyroidism E03.9 Neuropathy, diabetic E11.40 Hyperlipidemia E78.5 Fatty liver K76.0 Hypertension I10
[2021-02-04] MEDS: SIMVASTATIN 20 MG TAB PO SCH (20:23)
[2021-02-05] MEDS: ACETAMINOPHEN 325 MG TAB PO PRN (03:00)
[2021-02-05] MEDS: ceFAZolin 2000MG 2,000 MG/15 ML SYR IV SCH ×3 (03:01→19:27)
[2021-02-05] MEDS: LEVOTHYROXINE SODIUM 100 MCG TABLET PO SCH (03:02)
[2021-02-05] MEDS: INSULIN ASPART 100 UNITS/ML 3 ML PEN SC SCH ×4 (09:23→20:52)
[2021-02-05] MEDS: lisinopril 20 MG TAB PO SCH (09:26)
[2021-02-05] MEDS: CIPROFLOXACIN 500 MG TAB PO SCH ×2 (09:26→19:25)
[2021-02-05] MEDS: SIMVASTATIN 20 MG TAB PO SCH (20:36)
--- NOTE | 2021-02-05 21:58 | Hospitalist Progress Note ---
Date of Service February 05, 2021 Assessment & Plan (1) Diabetic foot ulcer with osteomyelitis: Plan: Osteomyelitis left calcaneus and left first MTP, proximal phalanx of the left fifth toe. Osteomyelitis of right fifth MTP that is most likely chronic but could also poss ibly have an acute component is draining and with foul smell Place on vancomycin IV and Zosyn IV per pharmacokinetic monitoring Patient will likely need a PICC line placed for extended course of antibiotics left foot MRI 1. Abnormal marrow signal and cortical destruction within the majority of the fifth metatarsal and base of the right fifth toe proximal phalanx consistent with osteomyelitis. 2. There is suggestion of a 2.8 x 1.5 cm abscess along the dorsal lateral aspect of the forefoot at the level of the fifth metatarsal head. 3. Possible pathologic fracture at the neck of the fifth metatarsal. 4. Osteitis without evidence for osteomyelitis within the distal phalanx of the first toe. right foot without definitely osteomyelitis but chronic appearing sclerosis of the lateral cortex of the 5th metatarsal base -> Evaluated by Dr. Loyd on 02/02 with recommendations for: * After review of heel MRI recommendations now are to proceed a below the knee amputation which the patient is not in agreement with. discussed again today with patient and her that BKA is best option for eradicating infection and healing, still refusing committed to using wound vac and IV antibiotics will need PT/OT evaluations, anticipate she would need SNF rehab due to complexity of care (2) Diabetes: Plan: Continue insulin glargine 40 units subcu twice daily (resume this as it was on hold) Place on Accu-Cheks before meals and at bedtime with NovoLog coverage per scale Holding Metformin (3) Hypothyroidism: Plan: Continue levothyroxine 100 mcg daily (4) Neuropathy, diabetic: Plan: Significant decrease sensation, allowing progression of significant ulceration and osteomyelitis without significant pain appreciated (5) Hyperlipidemia: Plan: Continue simvastatin 20 mg at bedtime (6) Fatty liver: Plan: Follow serial laboratories (7) Hypertension: Plan: Continue lisinopril Plan: Patient now looking for long-term facility [facility] for [facility] care and instrument venous antibiotic administration. She understands this is not the best route. Admission and Anticipated Discharge Date Admission Date: January 30, 2021 Subjective patient says her left foot has less pain, wound vac in place discussed recommendations for amputation with she and her , again they would like to try non-surgical treatment discussed with them that his could put her at higher risk of getting sepsis, worsening infection, ask orthotics to fit her for walking boot asking about wheelchair unsure she will be able to get into their apartment, CM to discuss SNF Review of Systems Review of Systems: All systems reviewed & are unremarkable except as noted in Subjective Musculoskeletal: + joint pain (left food) Integumentary: + wounds (left foot, wound vac in place) Physical Exam Constitutional: well developed, well nourished, + obese and comfortable; no acute distress Neck: trachea midline and + thick neck; neck nontender Respiratory: normal respiratory effort, lungs clear to auscultation Cardiovascular: RRR, no murmur, no edema Gastrointestinal (Abdomen): normal bowel sounds, soft, nontender, no hepatosplenomegaly Musculoskeletal: Head/Neck/Chest: normocephalic, head atraumatic and neck supple Extremities: + abnormal strength; no cyanosis, no clubbing and no petechiae Skin: + wound (left foot, vac in place, no surrounding cellulitis) Neurologic: normal touch/pain/proprioception, CN's II-XI intact bilaterally, moves all extremities and awake; no focal motor deficits Psychiatric: A+Ox3, euthymic affect Results & Data Results & Data ([facility]) Vital Signs (Past 12 Hours) Vital Signs Temp Pulse Resp BP Pulse Ox 02/05/21 16:48 36.9 C 90 18 127/76 95 Laboratory Results Laboratory Results - last 24 hr 02/05/21 02/05/21 02/05/21 08:12 12:04 17:18 POC Glucose 225 H 243 H 214 H 02/05/21 20:49 POC Glucose 268 H Medications Administered Current Inpatient Medications Acetaminophen (Acetaminophen 325 Mg Tab) 650 mg PO Q4H PRN PRN Reason: pain/fever Stop: 03/02/21 01:55 Last Admin: 02/05/21 03:00 Dose: 650 mg Documented by: Ciprofloxacin (Ciprofloxacin 500 Mg Tab) 500 mg PO BID AB; Protocol Stop: 02/10/21 20:59 Last Admin: 02/05/21 19:25 Dose: 500 mg Documented by: Dextrose (Dextrose 50% 50 Ml Syringe) 25 - 50 ml IV UD PRN; Protocol PRN Reason: Hypoglycemia Protocol Stop: 03/02/21 01:55 Glucagon (Glucagon For Inj 1 Mg Vial) 1 mg SQ UD PRN; Protocol PRN Reason: Hypoglycemia Protocol Stop: 03/02/21 01:55 Glucose (Glucose 10 Tabs/Tube) 4 - 8 tabs PO UD PRN; Protocol PRN Reason: Hypoglycemia Protocol Stop: 03/02/21 01:55 Glucose (Glucose 40% Gel 15 Gm Tube) 15 - 30 gm PO UD PRN; Protocol PRN Reason: Hypoglycemia Protocol Stop: 03/02/21 01:55 Cefazolin Sodium (Ancef 2000mg) 2,000 mg in 15 mls @ 3.75 mls/min IV Q8H [facility]; Protocol Stop: 03/16/21 11:59 Last Admin: 02/05/21 19:27 Dose: 3.75 mls/min Documented by: Insulin Aspart (Insulin Aspart 100 Units/Ml 3 Ml Pen) 0 units SC ACHS AB Stop: 03/06/21 20:59 Last Admin: 02/05/21 20:52 Dose: 18 units Documented by: Insulin Glargine (Insulin Glargine Solostar 100 Units/Ml 3 Ml Pen) 40 units SQ BID [facility] Stop: 03/02/21 02:29 Last Admin: 02/02/21 09:32 Dose: 40 units Documented by: Levothyroxine Sodium (Levothyroxine Sodium 100 Mcg Tablet) 100 mcg PO DAILYBB [facility] Stop: 03/02/21 06:29 Last Admin: 02/05/21 03:02 Dose: 100 mcg Documented by: Lisinopril (Lisinopril 20 Mg Tab) 20 mg PO DAILY [facility] Stop: 03/02/21 08:59 Last Admin: 02/05/21 09:26 Dose: 20 mg Documented by: Miconazole Nitrate (Miconazole Nitrate Powder 43 Gm) 1 appln EXT PRN PRN PRN Reason: Affected Skin Folds Stop: 03/05/21 21:09 Last Admin: 02/03/21 21:46 Dose: 1 appln Documented by: Miscellaneous (Carbohydrates For Hypoglycemia ) 15 - 30 gm PO UD PRN PRN Reason: Hypoglycemia Protocol Stop: 03/02/21 01:55 Ondansetron HCl (Ondansetron Inj 2 Mg/Ml 2 Ml Vial) 4 mg IV Q6H PRN PRN Reason: Nausea Stop: 03/02/21 01:55 Simvastatin (Simvastatin 20 Mg Tab) 20 mg PO HS AB Stop: 03/02/21 20:59 Last Admin: 02/05/21 20:36 Dose: 20 mg Documented by: PG Care Time/CCT Total # of Minutes Spent Total Time Spent with Patient: Total time spent is greater than 50% in coordination of care (as documented) at patient's floor/unit and/or counseling patient: Coding Level of Care Code 29529 Subseq Hosp Care Lvl 2 Diagnoses Diabetic foot ulcer with osteomyelitis E11.621; E11.69; L97.509; M86.9 Diabetes E11.9 Hypothyroidism E03.9 Neuropathy, diabetic E11.40 Hyperlipidemia E78.5 Fatty liver K76.0 Hypertension I10
[2021-02-06] MEDS: ceFAZolin 2000MG 2,000 MG/15 ML SYR IV SCH ×3 (03:09→21:03)
[2021-02-06] MEDS: LEVOTHYROXINE SODIUM 100 MCG TABLET PO SCH (05:54)
[2021-02-06 08:32] LABS: Basophils # (auto) 0.01 K/uL (0-0.2); Basophils % (auto) 0.1 %; Eosinophils # (auto) 0.36 K/uL (0-0.5); Eosinophils % (auto) 3.5 %; Hematocrit (blood only) 43.4 % (37-47); Hemoglobin 14.4 g/dL (12.0-16.0); Immature Granulocytes # (auto) 0.02 K/uL (0.00-0.02); Immature Granulocytes % (auto) 0.2 %; Lymphocytes # (auto) 1.54 K/uL (1.2-3.4); Lymphocytes % (auto) 14.8 %; Mean Corpuscular Hgb Conc 33.2 g/dL (32-36); Mean Corpuscular Volume 90.4 fL (80-100); Mean Platelet Volume 9.9 fL (7.4-10.4); Monocytes # (auto) 0.59 K/uL (0.11-0.59); Monocytes % (auto) 5.7 %; Neutrophils # (auto) 7.88 K/uL (1.4-6.5); Neutrophils % (auto) 75.7 %; Platelet Count 231 K/uL (130-400)
[2021-02-06] MEDS: lisinopril 20 MG TAB PO SCH (08:36)
[2021-02-06] MEDS: INSULIN ASPART 100 UNITS/ML 3 ML PEN SC SCH ×4 (08:36→21:10)
[2021-02-06] MEDS: CIPROFLOXACIN 500 MG TAB PO SCH ×2 (08:36→21:04)
[2021-02-06 08:57] LABS: Calcium 8.8 mg/dl (8.5-10.1); Est GFR (African American) 88.2 ml/min; Est GFR (Non-African American) 76.1 ml/min
[2021-02-06 08:58] LABS: C Reactive Protein 1.74 mg/dl (0-0.29)
--- NOTE | 2021-02-06 15:22 | Hospitalist Progress Note ---
Date of Service February 06, 2021 Assessment & Plan (1) Diabetic foot ulcer with osteomyelitis: Plan: Osteomyelitis left calcaneus and left first MTP, proximal phalanx of the left fifth toe. Osteomyelitis of right fifth MTP that is most likely chronic but could also poss ibly have an acute component is draining and with foul smell Place on vancomycin IV and Zosyn IV per pharmacokinetic monitoring Patient will likely need a PICC line placed for extended course of antibiotics left foot MRI 1. Abnormal marrow signal and cortical destruction within the majority of the fifth metatarsal and base of the right fifth toe proximal phalanx consistent with osteomyelitis. 2. There is suggestion of a 2.8 x 1.5 cm abscess along the dorsal lateral aspect of the forefoot at the level of the fifth metatarsal head. 3. Possible pathologic fracture at the neck of the fifth metatarsal. 4. Osteitis without evidence for osteomyelitis within the distal phalanx of the first toe. right foot without definitely osteomyelitis but chronic appearing sclerosis of the lateral cortex of the 5th metatarsal base -> Evaluated by Dr. Loyd on 02/02 with recommendations for: * After review of heel MRI recommendations now are to proceed a below the knee amputation which the patient is not in agreement with. discussed again on 02/05 with patient and her that BKA is best option for eradicating infection and healing, still refusing committed to using wound vac and IV antibiotics will need PT/OT evaluations, anticipate she would need SNF rehab due to complexity of care, will likely take a few days to place continue Ciprofloxacin and Cefazolin (2) Diabetes: Plan: Continue insulin glargine but reduce to 20 units subcu twice daily Place on Accu-Cheks before meals and at bedtime with NovoLog coverage per scale Holding Metformin (3) Hypothyroidism: Plan: Continue levothyroxine 100 mcg daily (4) Neuropathy, diabetic: Plan: Significant decrease sensation, allowing progression of significant ulceration and osteomyelitis without significant pain appreciated (5) Hyperlipidemia: Plan: Continue simvastatin 20 mg at bedtime (6) Fatty liver: Plan: Follow serial laboratories (7) Hypertension: Plan: Continue lisinopril Plan: Patient now looking for residential facility [facility] for [facility] care and instrument venous antibiotic administration. She understands this is not the best route. Admission and Anticipated Discharge Date Admission Date: January 30, 2021 Subjective patient is pleasant, no new issues spoke with CM, working on SNF referrals, patient agrees to short term wound vac working awaiting therapy evaluations eating well, moving bowels, making urine labs reviewed, CRP 1.7, ESR 50's, Cr and electrolytes stable, WBC 10k glucose elevated, need to resume Lantus but will do so at 20 units BID Review of Systems Review of Systems: All systems reviewed & are unremarkable except as noted in Subjective Physical Exam Constitutional: well developed, well nourished, + obese and comfortable; no acute distress Neck: trachea midline and + thick neck; neck nontender Respiratory: normal respiratory effort, lungs clear to auscultation Cardiovascular: RRR, no murmur, no edema Gastrointestinal (Abdomen): normal bowel sounds, soft, nontender, no hepatosplenomegaly Musculoskeletal: Head/Neck/Chest: normocephalic, head atraumatic and neck supple Extremities: + abnormal strength; no cyanosis, no clubbing and no petechiae Skin: + wound (left foot, vac in place, no surrounding cellulitis) Neurologic: normal touch/pain/proprioception, CN's II-XI intact bilaterally, moves all extremities and awake; no focal motor deficits Psychiatric: A+Ox3, euthymic affect Results & Data Results & Data ([facility]) Vital Signs (Past 12 Hours) Vital Signs Temp Pulse Resp BP Pulse Ox 02/06/21 07:00 36.8 C 96 H 20 113/63 93 Laboratory Results Laboratory Results - last 24 hr 02/05/21 02/05/21 02/06/21 17:18 20:49 07:23 WBC RBC Hgb Hct MCV MCH MCHC RDW Std Deviation RDW Coeff of Jose Plt Count MPV Immature Gran % (Auto) Neut % (Auto) Lymph % (Auto) Baldwin % (Auto) Eos % (Auto) Baso % (Auto) Neut # (Auto) Lymph # (Auto) Baldwin # (Auto) Eos # (Auto) Baso # (Auto) Immature Gran # (Auto) ESR Sodium Potassium Chloride Carbon Dioxide Anion Gap BUN Creatinine Est Cr Clr Drug Dosing Est GFR ( Amer) Est GFR (Non-Af Amer) BUN/Creatinine Ratio Glucose POC Glucose 214 H 268 H 259 H Calcium C-Reactive Protein 02/06/21 02/06/21 02/06/21 08:02 08:02 08:02 WBC 10.40 RBC 4.80 Hgb 14.4 Hct 43.4 MCV 90.4 MCH 30.0 MCHC 33.2 RDW Std Deviation 49.0 H RDW Coeff of Jose 15.0 H Plt Count 231 MPV 9.9 Immature Gran % (Auto) 0.2 Neut % (Auto) 75.7 Lymph % (Auto) 14.8 Baldwin % (Auto) 5.7 Eos % (Auto) 3.5 Baso % (Auto) 0.1 Neut # (Auto) 7.88 H Lymph # (Auto) 1.54 Baldwin # (Auto) 0.59 Eos # (Auto) 0.36 Baso # (Auto) 0.01 Immature Gran # (Auto) 0.02 ESR 53 H Sodium 134 L Potassium 4.0 Chloride 105 Carbon Dioxide 23 Anion Gap 6.0 BUN 19 H Creatinine 0.85 Est Cr Clr Drug Dosing 105.0 Est GFR ( Amer) 88.2 Est GFR (Non-Af Amer) 76.1 BUN/Creatinine Ratio 22.0 H Glucose 268 H POC Glucose Calcium 8.8 C-Reactive Protein 1.74 H 02/06/21 02/06/21 11:57 11:59 WBC RBC Hgb Hct MCV MCH MCHC RDW Std Deviation RDW Coeff of Jose Plt Count MPV Immature Gran % (Auto) Neut % (Auto) Lymph % (Auto) Baldwin % (Auto) Eos % (Auto) Baso % (Auto) Neut # (Auto) Lymph # (Auto) Baldwin # (Auto) Eos # (Auto) Baso # (Auto) Immature Gran # (Auto) ESR Sodium Potassium Chloride Carbon Dioxide Anion Gap BUN Creatinine Est Cr Clr Drug Dosing Est GFR ( Amer) Est GFR (Non-Af Amer) BUN/Creatinine Ratio Glucose POC Glucose 320 H* 327 H* Calcium C-Reactive Protein Medications Administered Current Inpatient Medications Acetaminophen (Acetaminophen 325 Mg Tab) 650 mg PO Q4H PRN PRN Reason: pain/fever Stop: 03/02/21 01:55 Last Admin: 02/05/21 03:00 Dose: 650 mg Documented by: Ciprofloxacin (Ciprofloxacin 500 Mg Tab) 500 mg PO BID AB; Protocol Stop: 02/10/21 20:59 Last Admin: 02/06/21 08:36 Dose: 500 mg Documented by: Dextrose (Dextrose 50% 50 Ml Syringe) 25 - 50 ml IV UD PRN; Protocol PRN Reason: Hypoglycemia Protocol Stop: 03/02/21 01:55 Glucagon (Glucagon For Inj 1 Mg Vial) 1 mg SQ UD PRN; Protocol PRN Reason: Hypoglycemia Protocol Stop: 03/02/21 01:55 Glucose (Glucose 10 Tabs/Tube) 4 - 8 tabs PO UD PRN; Protocol PRN Reason: Hypoglycemia Protocol Stop: 03/02/21 01:55 Glucose (Glucose 40% Gel 15 Gm Tube) 15 - 30 gm PO UD PRN; Protocol PRN Reason: Hypoglycemia Protocol Stop: 03/02/21 01:55 Cefazolin Sodium (Ancef 2000mg) 2,000 mg in 15 mls @ 3.75 mls/min IV Q8H [facility]; Protocol Stop: 03/16/21 11:59 Last Admin: 02/06/21 12:07 Dose: 3.75 mls/min Documented by: Insulin Aspart (Insulin Aspart 100 Units/Ml 3 Ml Pen) 0 units SC ACHS [facility] Stop: 03/06/21 20:59 Last Admin: 02/06/21 12:45 Dose: 21 units Documented by: Insulin Glargine (Insulin Glargine Solostar 100 Units/Ml 3 Ml Pen) 20 units SC BID [facility] Stop: 03/08/21 20:59 Levothyroxine Sodium (Levothyroxine Sodium 100 Mcg [facility]t) [facility] Stop: 03/02/21 06:29 Last Admin: 02/06/21 05:54 Dose: 100 mcg Documented by: Lisinopril (Lisinopril 20 Mg Tab) 20 mg PO DAILY [facility] Stop: 03/02/21 08:59 Last Admin: 02/06/21 08:36 Dose: 20 mg Documented by: Miconazole Nitrate (Miconazole Nitrate Powder 43 Gm) 1 appln EXT PRN PRN PRN Reason: Affected Skin Folds Stop: 03/05/21 21:09 Last Admin: 02/03/21 21:46 Dose: 1 appln Documented by: Miscellaneous (Carbohydrates For Hypoglycemia ) 15 - 30 gm PO UD PRN PRN Reason: Hypoglycemia Protocol Stop: 03/02/21 01:55 Ondansetron HCl (Ondansetron Inj 2 Mg/Ml 2 Ml Vial) 4 mg IV Q6H PRN PRN Reason: Nausea Stop: 03/02/21 01:55 Simvastatin (Simvastatin 20 Mg Tab) 20 mg PO [facility] Stop: 03/02/21 20:59 Last Admin: 02/05/21 20:36 Dose: 20 mg Documented by: PG Care Time/CCT Total # of Minutes Spent Total Time Spent with Patient: Total time spent is greater than 50% in coordination of care (as documented) at patient's floor/unit and/or counseling patient: Coding Level of Care Code 55733 Subseq Hosp Care Lvl 2 Diagnoses Diabetic foot ulcer with osteomyelitis E11.621; E11.69; L97.509; M86.9 Diabetes E11.9 Hypothyroidism E03.9 Neuropathy, diabetic E11.40 Hyperlipidemia E78.5 Fatty liver K76.0 Hypertension I10
--- NOTE | 2021-02-06 15:47 | Progress Notes ---
DATE OF SERVICE: 02/06/2021 The patient has been seen by wound care and has had a wound VAC placed. She is doing well and wonder s if she can stay in the hospital longer. She can follow up with me in a week or two on the day that she is to get her wound VAC changed and we can monitor her wound. Offloading of both lower extremit ies, particularly on the left. She will need antibiotics according to infectious diseases. She has been afebrile. Job ID: [id number]
[2021-02-06] MEDS: SIMVASTATIN 20 MG TAB PO SCH (21:05)
[2021-02-06] MEDS: INSULIN GLARGINE SOLOSTAR 100 UNITS/ML 3 ML PEN SC SCH (21:10)
[2021-02-07] MEDS: ceFAZolin 2000MG 2,000 MG/15 ML SYR IV SCH ×3 (04:10→20:06)
[2021-02-07] MEDS: LEVOTHYROXINE SODIUM 100 MCG TABLET PO SCH (06:02)
[2021-02-07] MEDS: lisinopril 20 MG TAB PO SCH (08:48)
[2021-02-07] MEDS: CIPROFLOXACIN 500 MG TAB PO SCH ×2 (08:48→21:04)
[2021-02-07] MEDS: INSULIN ASPART 100 UNITS/ML 3 ML PEN SC SCH ×4 (09:47→21:05)
[2021-02-07] MEDS: INSULIN GLARGINE SOLOSTAR 100 UNITS/ML 3 ML PEN SC SCH ×2 (09:49→21:06)
[2021-02-07] MEDS ORDERED: INSULIN GLARGINE SOLOSTAR 100 UNITS/ML 3 ML PEN SC STA (12:19)
--- NOTE | 2021-02-07 16:41 | Hospitalist Progress Note ---
Date of Service February 07, 2021 Assessment & Plan (1) Diabetic foot ulcer with osteomyelitis: Plan: Osteomyelitis left calcaneus and left first MTP, proximal phalanx of the left fifth toe. Osteomyelitis of right fifth MTP that is most likely chronic but could also poss ibly have an acute component is draining and with foul smell Place on vancomycin IV and Zosyn IV per pharmacokinetic monitoring Patient will likely need a PICC line placed for extended course of antibiotics left foot MRI 1. Abnormal marrow signal and cortical destruction within the majority of the fifth metatarsal and base of the right fifth toe proximal phalanx consistent with osteomyelitis. 2. There is suggestion of a 2.8 x 1.5 cm abscess along the dorsal lateral aspect of the forefoot at the level of the fifth metatarsal head. 3. Possible pathologic fracture at the neck of the fifth metatarsal. 4. Osteitis without evidence for osteomyelitis within the distal phalanx of the first toe. right foot without definitely osteomyelitis but chronic appearing sclerosis of the lateral cortex of the 5th metatarsal base -> Evaluated by Dr. Loyd on 02/02 with recommendations for: * After review of heel MRI recommendations now are to proceed a below the knee amputation which the patient is not in agreement with. discussed again on 02/05 with patient and her that BKA is best option for eradicating infection and healing, still refusing committed to using wound vac and IV antibiotics will need PT/OT evaluations, recommend rehab, referral made to [facility] with [facility] back up continue Ciprofloxacin and Cefazolin (2) Diabetes: Plan: hyperglycemia today, > 300 insulin glargine increase back to 40 units subcu twice daily tighten correction factor to 10 with goal < 140, carb ratio still 5 sugars better this evening Holding Metformin (3) Hypothyroidism: Plan: Continue levothyroxine 100 mcg daily (4) Neuropathy, diabetic: Plan: Significant decrease sensation, allowing progression of significant ulceration and osteomyelitis without significant pain appreciated (5) Hyperlipidemia: Plan: Continue simvastatin 20 mg at bedtime (6) Fatty liver: Plan: Follow serial laboratories (7) Hypertension: Plan: Continue lisinopril Plan: referral to [facility], might be able to go tomorrow Admission and Anticipated Discharge Date Admission Date: January 30, 2021 Subjective patient doing well, no complaints sugars were elevated again around noon gave extra Lantus, tightened Novolog CF to 10 and goal at <140, sugars better later in the day hopeful for [facility] tomorrow, CM following eating well, making urine, moving bowels Review of Systems Review of Systems: All systems reviewed & are unremarkable except as noted in Subjective Physical Exam Constitutional: well developed, well nourished, + obese and comfortable; no acute distress Neck: trachea midline and + thick neck; neck nontender Respiratory: normal respiratory effort, lungs clear to auscultation Cardiovascular: RRR, no murmur, no edema Gastrointestinal (Abdomen): normal bowel sounds, soft, nontender, no hepatosplenomegaly Musculoskeletal: Head/Neck/Chest: normocephalic, head atraumatic and neck supple Extremities: + abnormal strength; no cyanosis, no clubbing and no petechiae Skin: + wound (left foot, vac in place, no surrounding cellulitis) Neurologic: normal touch/pain/proprioception, CN's II-XI intact bilaterally, moves all extremities and awake; no focal motor deficits Psychiatric: A+Ox3, euthymic affect Results & Data Results & Data ([facility]) Vital Signs (Past 12 Hours) Vital Signs Temp Pulse Pulse Resp BP BP Pulse Ox 02/07/21 07:54 36.6 C 93 H 18 137/73 93 02/07/21 07:05 36.6 C 83 16 123/75 94 Laboratory Results Laboratory Results - last 24 hr 02/07/21 02/07/21 02/07/21 08:08 12:04 12:05 POC Glucose 225 H 331 H* 350 H* 02/07/21 02/07/21 17:04 20:54 POC Glucose 202 H 171 H Medications Administered Current Inpatient Medications Acetaminophen (Acetaminophen 325 Mg Tab) 650 mg PO Q4H PRN PRN Reason: pain/fever Stop: 03/02/21 01:55 Last Admin: 02/07/21 16:43 Dose: 650 mg Documented by: Ciprofloxacin (Ciprofloxacin 500 Mg Tab) 500 mg PO BID [facility]; Protocol Stop: 02/10/21 20:59 Last Admin: 02/07/21 21:04 Dose: 500 mg Documented by: Dextrose (Dextrose 50% 50 Ml Syringe) 25 - 50 ml IV UD PRN; Protocol PRN Reason: Hypoglycemia Protocol Stop: 03/02/21 01:55 Glucagon (Glucagon For Inj 1 Mg Vial) 1 mg SQ UD PRN; Protocol PRN Reason: Hypoglycemia Protocol Stop: 03/02/21 01:55 Glucose (Glucose 10 Tabs/Tube) 4 - 8 tabs PO UD PRN; Protocol PRN Reason: Hypoglycemia Protocol Stop: 03/02/21 01:55 Glucose (Glucose 40% Gel 15 Gm Tube) 15 - 30 gm PO UD PRN; Protocol PRN Reason: Hypoglycemia Protocol Stop: 03/02/21 01:55 Cefazolin Sodium (Ancef 2000mg) 2,000 mg in 15 mls @ 3.75 mls/min IV Q8H AB; Protocol Stop: 03/16/21 11:59 Last Admin: 02/07/21 20:06 Dose: 3.75 mls/min Documented by: Insulin Aspart (Insulin Aspart 100 Units/Ml 3 Ml Pen) 0 units SC ACHS [facility] Stop: 03/06/21 20:59 Last Admin: 02/07/21 21:05 Dose: 4 units Documented by: Insulin Glargine (Insulin Glargine Solostar 100 Units/Ml 3 Ml Pen) 40 units SC BID [facility] Stop: 03/09/21 20:59 Last Admin: 02/07/21 21:06 Dose: 40 units Documented by: Levothyroxine Sodium (Levothyroxine Sodium 100 Mcg Tablet) 100 mcg PO DAILYBB [facility] Stop: 03/02/21 06:29 Last Admin: 02/07/21 06:02 Dose: 100 mcg Documented by: Lisinopril (Lisinopril 20 Mg Tab) 20 mg PO DAILY [facility] Stop: 03/02/21 08:59 Last Admin: 02/07/21 08:48 Dose: 20 mg Documented by: Miconazole Nitrate (Miconazole Nitrate Powder 43 Gm) 1 appln EXT PRN PRN PRN Reason: Affected Skin Folds Stop: 03/05/21 21:09 Last Admin: 02/03/21 21:46 Dose: 1 appln Documented by: Miscellaneous (Carbohydrates For Hypoglycemia ) 15 - 30 gm PO UD PRN PRN Reason: Hypoglycemia Protocol Stop: 03/02/21 01:55 Ondansetron HCl (Ondansetron Inj 2 Mg/Ml 2 Ml Vial) 4 mg IV Q6H PRN PRN Reason: Nausea Stop: 03/02/21 01:55 Simvastatin (Simvastatin 20 Mg Tab) 20 mg PO HS [facility] Stop: 03/02/21 20:59 Last Admin: 02/07/21 21:04 Dose: 20 mg Documented by: PG Care Time/CCT Total # of Minutes Spent Total Time Spent with Patient: Total time spent is greater than 50% in coordination of care (as documented) at patient's floor/unit and/or counseling patient: Coding Level of Care Code 30897 Subseq Hosp Care Lvl 2 Diagnoses Diabetic foot ulcer with osteomyelitis E11.621; E11.69; L97.509; M86.9 Diabetes E11.9 Hypothyroidism E03.9 Neuropathy, diabetic E11.40 Hyperlipidemia E78.5 Fatty liver K76.0 Hypertension I10
[2021-02-07] MEDS: ACETAMINOPHEN 325 MG TAB PO PRN (16:43)
[2021-02-07] MEDS: SIMVASTATIN 20 MG TAB PO SCH (21:04)
[2021-02-08] MEDS: ceFAZolin 2000MG 2,000 MG/15 ML SYR IV SCH (06:03)
[2021-02-08] MEDS: LEVOTHYROXINE SODIUM 100 MCG TABLET PO SCH (06:03)
[2021-02-08] MEDS: INSULIN ASPART 100 UNITS/ML 3 ML PEN SC SCH ×4 (09:34→21:10)
[2021-02-08] MEDS: INSULIN GLARGINE SOLOSTAR 100 UNITS/ML 3 ML PEN SC SCH ×2 (09:35→21:12)
[2021-02-08] MEDS: lisinopril 20 MG TAB PO SCH (09:38)
[2021-02-08] MEDS: cefTRIAXone SODIUM 2,000 MG in DEXTROSE 5% 50 ML IV SCH (09:41)
[2021-02-08] MEDS: ACETAMINOPHEN 325 MG TAB PO PRN ×3 (10:26→23:42)
[2021-02-08] MEDS: MICONAZOLE NITRATE POWDER 43 GM EXT PRN (13:13)
--- NOTE | 2021-02-08 20:50 | Hospitalist Progress Note ---
Date of Service February 08, 2021 Assessment & Plan (1) Diabetic foot ulcer with osteomyelitis: Plan: Osteomyelitis left calcaneus and left first MTP, proximal phalanx of the left fifth toe. Osteomyelitis of right fifth MTP that is most likely chronic but could also poss ibly have an acute component is draining and with foul smell Place on vancomycin IV and Zosyn IV per pharmacokinetic monitoring left foot MRI 1. Abnormal marrow signal and cortical destruction within the majority of the fifth metatarsal and base of the right fifth toe proximal phalanx consistent with osteomyelitis. 2. There is suggestion of a 2.8 x 1.5 cm abscess along the dorsal lateral asp ect of the forefoot at the level of the fifth metatarsal head. 3. Possible pathologic fracture at the neck of the fifth metatarsal. 4. Osteitis without evidence for osteomyelitis within the distal phalanx of the first toe. right foot without definitely osteomyelitis but chronic appearing sclerosis of the lateral cortex of the 5th metatarsal base -> Evaluated by Dr. Loyd on 02/02 with recommendations for: * After review of heel MRI recommendations now are to proceed a below the knee amputation which the patient is not in agreement with. discussed again on 02/05 with patient and her that BKA is best option for eradicating infection and healing, still refusing committed to using wound vac and IV antibiotics will need PT/OT evaluations, recommend rehab, referral made to [facility] with [facility] back [facility] per ID, can change antibiotics to Rocephin 2gm IV daily, needs 6 weeks of treatment peripheral guided IV placed on 02/08 (2) Diabetes: Plan: hyperglycemia on 02/07, > 300 insulin glargine increase back to 40 units subcu twice daily tightened correction factor to 10 with goal < 140, carb ratio still 5 sugars better all day today, no sugars > 300 Holding Metformin, resume on discharge (3) Hypothyroidism: Plan: Continue levothyroxine 100 mcg daily (4) Neuropathy, diabetic: Plan: Significant decrease sensation, allowing progression of significant ulceration and osteomyelitis without significant pain appreciated (5) Hyperlipidemia: Plan: Continue simvastatin 20 mg at bedtime (6) Fatty liver: Plan: Follow serial laboratories (7) Hypertension: Plan: Continue lisinopril Plan: referral to [facility], might be able to go tomorrow Admission and Anticipated Discharge Date Admission Date: January 30, 2021 Subjective patient doing well, sugars better controlled eating well, no chest pain, no dyspnea, no cough no pain in feet still awaiting insurance auth for [facility] reviewed ID note, can be on Rocephin 2gm daily for 6 weeks Review of Systems Review of Systems: All systems reviewed & are unremarkable except as noted in Subjective Physical Exam Constitutional: well developed, well nourished, + obese and comfortable; no acute distress Neck: trachea midline and + thick neck; neck nontender Respiratory: normal respiratory effort, lungs clear to auscultation Cardiovascular: RRR, no murmur, no edema Gastrointestinal (Abdomen): normal bowel sounds, soft, nontender, no hepatosplenomegaly Musculoskeletal: Head/Neck/Chest: normocephalic, head atraumatic and neck supple Extremities: + abnormal strength; no cyanosis, no clubbing and no petechiae Skin: + wound (left foot, vac in place, no surrounding cellulitis) Neurologic: normal touch/pain/proprioception, CN's II-XI intact bilaterally, moves all extremities and awake; no focal motor deficits Psychiatric: A+Ox3, euthymic affect Results & Data Results & Data ([facility]) Vital Signs (Past 12 Hours) Vital Signs Temp Pulse Resp BP Pulse Ox 02/08/21 16:00 36.6 C 85 18 123/73 95 Laboratory Results Laboratory Results - last 24 hr 02/07/21 02/08/21 02/08/21 20:54 08:25 12:15 POC Glucose 171 H 176 H 265 H 02/08/21 02/08/21 17:30 20:39 POC Glucose 134 H 242 H Medications Administered Current Inpatient Medications Acetaminophen (Acetaminophen 325 Mg Tab) 650 mg PO Q4H PRN PRN Reason: pain/fever Stop: 03/02/21 01:55 Last Admin: 02/08/21 15:05 Dose: 650 mg Documented by: Dextrose (Dextrose 50% 50 Ml Syringe) 25 - 50 ml IV UD PRN; Protocol PRN Reason: Hypoglycemia Protocol Stop: 03/02/21 01:55 Glucagon (Glucagon For Inj 1 Mg Vial) 1 mg SQ UD PRN; Protocol PRN Reason: Hypoglycemia Protocol Stop: 03/02/21 01:55 Glucose (Glucose 10 Tabs/Tube) 4 - 8 tabs PO UD PRN; Protocol PRN Reason: Hypoglycemia Protocol Stop: 03/02/21 01:55 Glucose (Glucose 40% Gel 15 Gm Tube) 15 - 30 gm PO UD PRN; Protocol PRN Reason: Hypoglycemia Protocol Stop: 03/02/21 01:55 Ceftriaxone Sodium 2,000 mg/ (Dextrose) 70 mls @ 140 mls/hr IV DAILY [facility]; Protocol Stop: 02/15/21 08:59 Last Infusion: 02/08/21 10:11 Dose: Infused Documented by: Insulin Aspart (Insulin Aspart 100 Units/Ml 3 Ml Pen) 0 units SC ACHS [facility] Stop: 03/06/21 20:59 Last Admin: 02/08/21 17:49 Dose: 13 units Documented by: Insulin Glargine (Insulin Glargine Solostar 100 Units/Ml 3 Ml Pen) 40 units SC BID [facility] Stop: 03/09/21 20:59 Last Admin: 02/08/21 09:35 Dose: 40 units Documented by: Levothyroxine Sodium (Levothyroxine Sodium 100 Mcg Tablet) 100 mcg PO DAILYBB [facility] Stop: 03/02/21 06:29 Last Admin: 02/08/21 06:03 Dose: 100 mcg Documented by: Lisinopril (Lisinopril 20 Mg Tab) 20 mg PO DAILY [facility] Stop: 03/02/21 08:59 Last Admin: 02/08/21 09:38 Dose: 20 mg Documented by: Miconazole Nitrate (Miconazole Nitrate Powder 43 Gm) 1 appln EXT PRN PRN PRN Reason: Affected Skin Folds Stop: 03/05/21 21:09 Last Admin: 02/08/21 13:13 Dose: 1 appln Documented by: Miscellaneous (Carbohydrates For Hypoglycemia ) 15 - 30 gm PO UD PRN PRN Reason: Hypoglycemia Protocol Stop: 03/02/21 01:55 Ondansetron HCl (Ondansetron Inj 2 Mg/Ml 2 Ml Vial) 4 mg IV Q6H PRN PRN Reason: Nausea Stop: 03/02/21 01:55 Simvastatin (Simvastatin 20 Mg Tab) 20 mg PO HS [facility] Stop: 03/02/21 20:59 Last Admin: 02/07/21 21:04 Dose: 20 mg Documented by: PG Care Time/CCT Total # of Minutes Spent Total Time Spent with Patient: Total time spent is greater than 50% in coordination of care (as documented) at patient's floor/unit and/or counseling patient: Coding Level of Care Code 25694 Subseq Hosp Care Lvl 2 Diagnoses Diabetic foot ulcer with osteomyelitis E11.621; E11.69; L97.509; M86.9 Diabetes E11.9 Hypothyroidism E03.9 Neuropathy, diabetic E11.40 Hyperlipidemia E78.5 Fatty liver K76.0 Hypertension I10
[2021-02-08] MEDS: SIMVASTATIN 20 MG TAB PO SCH (21:06)
[2021-02-09] MEDS: LEVOTHYROXINE SODIUM 100 MCG TABLET PO SCH (06:21)
[2021-02-09] MEDS: cefTRIAXone SODIUM 2,000 MG in DEXTROSE 5% 50 ML IV SCH (09:05)
[2021-02-09] MEDS: lisinopril 20 MG TAB PO SCH (09:24)
[2021-02-09] MEDS: INSULIN ASPART 100 UNITS/ML 3 ML PEN SC SCH ×4 (09:36→20:23)
[2021-02-09] MEDS: INSULIN GLARGINE SOLOSTAR 100 UNITS/ML 3 ML PEN SC SCH ×2 (09:40→20:24)
[2021-02-09] MEDS: ACETAMINOPHEN 325 MG TAB PO PRN ×2 (15:42→20:30)
--- NOTE | 2021-02-09 19:05 | Hospitalist Progress Note ---
Date of Service February 09, 2021 Assessment & Plan (1) Diabetic foot ulcer with osteomyelitis: Plan: Osteomyelitis left calcaneus and left first MTP, proximal phalanx of the left fifth toe. Osteomyelitis of right fifth MTP that is most likely chronic but could also poss ibly have an acute component is draining and with foul smell Place on vancomycin IV and Zosyn IV per pharmacokinetic monitoring left foot MRI 1. Abnormal marrow signal and cortical destruction within the majority of the fifth metatarsal and base of the right fifth toe proximal phalanx consistent with osteomyelitis. 2. There is suggestion of a 2.8 x 1.5 cm abscess along the dorsal lateral asp ect of the forefoot at the level of the fifth metatarsal head. 3. Possible pathologic fracture at the neck of the fifth metatarsal. 4. Osteitis without evidence for osteomyelitis within the distal phalanx of the first toe. right foot without definitely osteomyelitis but chronic appearing sclerosis of the lateral cortex of the 5th metatarsal base -> Evaluated by Dr. Loyd on 02/02 with recommendations for: * After review of heel MRI recommendations now are to proceed a below the knee amputation which the patient is not in agreement with. discussed again on 02/05 with patient and her that BKA is best option for eradicating infection and healing, still refusing committed to using wound vac and IV antibiotics will need PT/OT evaluations, recommend rehab, referral made to [facility] with [facility] back up still waiting on insurance auth for [facility] per ID, can change antibiotics to Rocephin 2gm IV daily, needs 6 weeks of treatment peripheral guided IV placed on 02/08 (2) Diabetes: Plan: hyperglycemia on 02/07, > 300 insulin glargine increase back to 40 units subcu twice daily tightened correction factor to 10 with goal < 140, carb ratio still 5 sugars better past 24 hours Holding Metformin, resume on discharge (3) Hypothyroidism: Plan: Continue levothyroxine 100 mcg daily (4) Neuropathy, diabetic: Plan: Significant decrease sensation, allowing progression of significant ulceration and osteomyelitis without significant pain appreciated (5) Hyperlipidemia: Plan: Continue simvastatin 20 mg at bedtime (6) Fatty liver: Plan: Follow serial laboratories (7) Hypertension: Plan: Continue lisinopril Plan: referral to [facility], might be able to go tomorrow Admission and Anticipated Discharge Date Admission Date: January 30, 2021 Subjective patient is stable, no major issues over night eating well, no fever, breathing well, no chest pain still waiting on insurance auth Review of Systems Review of Systems: All systems reviewed & are unremarkable except as noted in Subjective Physical Exam Constitutional: well developed, well nourished, + obese and comfortable; no acute distress Neck: trachea midline and + thick neck; neck nontender Respiratory: normal respiratory effort, lungs clear to auscultation Cardiovascular: RRR, no murmur, no edema Gastrointestinal (Abdomen): normal bowel sounds, soft, nontender, no hepatosplenomegaly Musculoskeletal: Head/Neck/Chest: normocephalic, head atraumatic and neck supple Extremities: + abnormal strength; no cyanosis, no clubbing and no petechiae Skin: + wound (left foot, vac in place, no surrounding cellulitis) Neurologic: normal touch/pain/proprioception, CN's II-XI intact bilaterally, moves all extremities and awake; no focal motor deficits Psychiatric: A+Ox3, euthymic affect Results & Data Results & Data ([facility]) Vital Signs (Past 12 Hours) Vital Signs Temp Pulse Pulse Resp BP Pulse Ox 02/09/21 07:47 36.4 C L 80 76 14 123/76 95 Laboratory Results Laboratory Results - last 24 hr 02/08/21 02/09/21 02/09/21 20:39 08:20 12:10 POC Glucose 242 H 184 H 292 H 02/09/21 17:25 POC Glucose 208 H Medications Administered Current Inpatient Medications Acetaminophen (Acetaminophen 325 Mg Tab) 650 mg PO Q4H PRN PRN Reason: pain/fever Stop: 03/02/21 01:55 Last Admin: 02/09/21 15:42 Dose: 650 mg Documented by: Dextrose (Dextrose 50% 50 Ml Syringe) 25 - 50 ml IV UD PRN; Protocol PRN Reason: Hypoglycemia Protocol Stop: 03/02/21 01:55 Glucagon (Glucagon For Inj 1 Mg Vial) 1 mg SQ UD PRN; Protocol PRN Reason: Hypoglycemia Protocol Stop: 03/02/21 01:55 Glucose (Glucose 10 Tabs/Tube) 4 - 8 tabs PO UD PRN; Protocol PRN Reason: Hypoglycemia Protocol Stop: 03/02/21 01:55 Glucose (Glucose 40% Gel 15 Gm Tube) 15 - 30 gm PO UD PRN; Protocol PRN Reason: Hypoglycemia Protocol Stop: 03/02/21 01:55 Ceftriaxone Sodium 2,000 mg/ (Dextrose) 70 mls @ 140 mls/hr IV DAILY [facility]; Protocol Stop: 02/15/21 08:59 Last Infusion: 02/09/21 10:09 Dose: Infused Documented by: Insulin Aspart (Insulin Aspart 100 Units/Ml 3 Ml Pen) 0 units SC ACHS [facility] Stop: 03/06/21 20:59 Last Admin: 02/09/21 17:41 Dose: 19 units Documented by: Insulin Glargine (Insulin Glargine Solostar 100 Units/Ml 3 Ml Pen) 40 units SC BID [facility] Stop: 03/09/21 20:59 Last Admin: 02/09/21 09:40 Dose: 40 units Documented by: Levothyroxine Sodium (Levothyroxine Sodium 100 Mcg Tablet) 100 mcg PO DAILYBB [facility] Stop: 03/02/21 06:29 Last Admin: 02/09/21 06:21 Dose: 100 mcg Documented by: Lisinopril (Lisinopril 20 Mg Tab) 20 mg PO DAILY [facility] Stop: 03/02/21 08:59 Last Admin: 02/09/21 09:24 Dose: 20 mg Documented by: Miconazole Nitrate (Miconazole Nitrate Powder 43 Gm) 1 appln EXT PRN PRN PRN Reason: Affected Skin Folds Stop: 03/05/21 21:09 Last Admin: 02/08/21 13:13 Dose: 1 appln Documented by: Miscellaneous (Carbohydrates For Hypoglycemia ) 15 - 30 gm PO UD PRN PRN Reason: Hypoglycemia Protocol Stop: 03/02/21 01:55 Ondansetron HCl (Ondansetron Inj 2 Mg/Ml 2 Ml Vial) 4 mg IV Q6H PRN PRN Reason: Nausea Stop: 03/02/21 01:55 Simvastatin (Simvastatin 20 Mg Tab) 20 mg PO HS [facility] Stop: 03/02/21 20:59 Last Admin: 02/08/21 21:06 Dose: 20 mg Documented by: PG Care Time/CCT Total # of Minutes Spent Total Time Spent with Patient: Total time spent is greater than 50% in coordination of care (as documented) at patient's floor/unit and/or counseling patient: Coding Level of Care Code 27077 Subseq Hosp Care Lvl 1 Diagnoses Diabetic foot ulcer with osteomyelitis E11.621; E11.69; L97.509; M86.9 Diabetes E11.9 Hypothyroidism E03.9 Neuropathy, diabetic E11.40 Hyperlipidemia E78.5 Fatty liver K76.0 Hypertension I10
[2021-02-09] MEDS: SIMVASTATIN 20 MG TAB PO SCH (20:23)
[2021-02-10] MEDS: LEVOTHYROXINE SODIUM 100 MCG TABLET PO SCH (06:20)
[2021-02-10] MEDS: lisinopril 20 MG TAB PO SCH (09:47)
[2021-02-10] MEDS: INSULIN ASPART 100 UNITS/ML 3 ML PEN SC SCH ×4 (09:49→20:47)
[2021-02-10] MEDS: INSULIN GLARGINE SOLOSTAR 100 UNITS/ML 3 ML PEN SC SCH ×2 (09:50→20:47)
[2021-02-10] MEDS: cefTRIAXone SODIUM 2,000 MG in DEXTROSE 5% 50 ML IV SCH (09:54)
[2021-02-10] MEDS: diphenhydrAMINE Capsule 25 MG CAP PO PRN ×2 (10:52→23:27)
--- NOTE | 2021-02-10 15:38 | Hospitalist Progress Note ---
Date of Service February 10, 2021 Assessment & Plan (1) Diabetic foot ulcer with osteomyelitis: Plan: Osteomyelitis left calcaneus and left first MTP, proximal phalanx of the left fifth toe. Osteomyelitis of right fifth MTP that is most likely chronic but could also poss ibly have an acute component is draining and with foul smell Place on vancomycin IV and Zosyn IV per pharmacokinetic monitoring left foot MRI 1. Abnormal marrow signal and cortical destruction within the majority of the fifth metatarsal and base of the right fifth toe proximal phalanx consistent with osteomyelitis. 2. There is suggestion of a 2.8 x 1.5 cm abscess along the dorsal lateral asp ect of the forefoot at the level of the fifth metatarsal head. 3. Possible pathologic fracture at the neck of the fifth metatarsal. 4. Osteitis without evidence for osteomyelitis within the distal phalanx of the first toe. right foot without definitely osteomyelitis but chronic appearing sclerosis of the lateral cortex of the 5th metatarsal base -> Evaluated by Dr. Loyd on 02/02 with recommendations for: * After review of heel MRI recommendations now are to proceed a below the knee amputation which the patient is not in agreement with. discussed again on 02/05 with patient and her that BKA is best option for eradicating infection and healing, still refusing committed to using wound vac and IV antibiotics will need PT/OT evaluations, recommend rehab, referral made to [facility] back up still waiting on insurance auth for [facility] per ID, can change antibiotics to Rocephin 2gm IV daily, needs 6 weeks of treatment peripheral guided IV placed on 02/08 (2) Diabetes: Plan: hyperglycemia on 02/07, > 300 insulin glargine increase back to 40 units subcu twice daily tightened correction factor to 10 with goal < 140, carb ratio still 5 sugars better past 24 hours Holding Metformin, resume on discharge (3) Hypothyroidism: Plan: Continue levothyroxine 100 mcg daily (4) Neuropathy, diabetic: Plan: Significant decrease sensation, allowing progression of significant ulceration and osteomyelitis without significant pain appreciated (5) Hyperlipidemia: Plan: Continue simvastatin 20 mg at bedtime (6) Fatty liver: Plan: Follow serial laboratories (7) Hypertension: Plan: Continue lisinopril Plan: referral to [facility], might be able to go tomorrow Admission and Anticipated Discharge Date Admission Date: January 30, 2021 Subjective no new issues, just waiting on insurance auth for [facility] OOB to chair today, breathing well, no chest pain, no fevers, eating okay Review of Systems Review of Systems: All systems reviewed & are unremarkable except as noted in Subjective Physical Exam Constitutional: well developed, well nourished, + obese and comfortable; no acute distress Neck: trachea midline and + thick neck; neck nontender Respiratory: normal respiratory effort, lungs clear to auscultation Cardiovascular: RRR, no murmur, no edema Gastrointestinal (Abdomen): normal bowel sounds, soft, nontender, no hepatosplenomegaly Musculoskeletal: Head/Neck/Chest: normocephalic, head atraumatic and neck supple Extremities: + abnormal strength; no cyanosis, no clubbing and no petechiae Skin: + wound (left foot, vac in place, no surrounding cellulitis) Neurologic: normal touch/pain/proprioception, CN's II-XI intact bilaterally, moves all extremities and awake; no focal motor deficits Psychiatric: A+Ox3, euthymic affect Results & Data Results & Data ([facility]) Vital Signs (Past 12 Hours) Vital Signs Temp Pulse Resp BP Pulse Ox 02/10/21 11:43 36.8 C 84 20 110/72 95 02/10/21 09:46 136/81 02/10/21 08:00 36.8 C 80 20 117/72 96 Laboratory Results Laboratory Results - last 24 hr 02/09/21 02/09/21 02/10/21 17:25 20:14 08:17 POC Glucose 208 H 229 H 160 H 02/10/21 12:10 POC Glucose 230 H Medications Administered Current Inpatient Medications Acetaminophen (Acetaminophen 325 Mg Tab) 650 mg PO Q4H PRN PRN Reason: pain/fever Stop: 03/02/21 01:55 Last Admin: 02/09/21 20:30 Dose: 650 mg Documented by: Dextrose (Dextrose 50% 50 Ml Syringe) 25 - 50 ml IV UD PRN; Protocol PRN Reason: Hypoglycemia Protocol Stop: 03/02/21 01:55 Diphenhydramine HCl (Diphenhydramine Capsule 25 Mg Cap) 25 mg PO Q8 PRN PRN Reason: Itching Stop: 03/12/21 10:40 Last Admin: 02/10/21 10:52 Dose: 25 mg Documented by: Glucagon (Glucagon For Inj 1 Mg Vial) 1 mg SQ UD PRN; Protocol PRN Reason: Hypoglycemia Protocol Stop: 03/02/21 01:55 Glucose (Glucose 10 Tabs/Tube) 4 - 8 tabs PO UD PRN; Protocol PRN Reason: Hypoglycemia Protocol Stop: 03/02/21 01:55 Glucose (Glucose 40% Gel 15 Gm Tube) 15 - 30 gm PO UD PRN; Protocol PRN Reason: Hypoglycemia Protocol Stop: 03/02/21 01:55 Ceftriaxone Sodium 2,000 mg/ (Dextrose) 70 mls @ 140 mls/hr IV DAILY AB; Protocol Stop: 02/15/21 08:59 Last Infusion: 02/10/21 10:28 Dose: Infused Documented by: Insulin Aspart (Insulin Aspart 100 Units/Ml 3 Ml Pen) 0 units SC ACHS [facility] Stop: 03/06/21 20:59 Last Admin: 02/10/21 13:22 Dose: 20 units Documented by: Insulin Glargine (Insulin Glargine Solostar 100 Units/Ml 3 Ml Pen) 40 units SC BID [facility] Stop: 03/09/21 20:59 Last Admin: 02/10/21 09:50 Dose: 40 units Documented by: Levothyroxine Sodium (Levothyroxine Sodium 100 Mcg Tablet) 100 mcg PO DAILYBB [facility] Stop: 03/02/21 06:29 Last Admin: 02/10/21 06:20 Dose: 100 mcg Documented by: Lisinopril (Lisinopril 20 Mg Tab) 20 mg PO DAILY [facility] Stop: 03/02/21 08:59 Last Admin: 02/10/21 09:47 Dose: 20 mg Documented by: Miconazole Nitrate (Miconazole Nitrate Powder 43 Gm) 1 appln EXT PRN PRN PRN Reason: Affected Skin Folds Stop: 03/05/21 21:09 Last Admin: 02/08/21 13:13 Dose: 1 appln Documented by: Miscellaneous (Carbohydrates For Hypoglycemia ) 15 - 30 gm PO UD PRN PRN Reason: Hypoglycemia Protocol Stop: 03/02/21 01:55 Ondansetron HCl (Ondansetron Inj 2 Mg/Ml 2 Ml Vial) 4 mg IV Q6H PRN PRN Reason: Nausea Stop: 03/02/21 01:55 Simvastatin (Simvastatin 20 Mg Tab) 20 mg PO HS [facility] Stop: 03/02/21 20:59 Last Admin: 02/09/21 20:23 Dose: 20 mg Documented by: PG Care Time/CCT Total # of Minutes Spent Total Time Spent with Patient: Total time spent is greater than 50% in coordination of care (as documented) at patient's floor/unit and/or counseling patient: Coding Level of Care Code 30493 Subseq Hosp Care Lvl 1 Diagnoses Diabetic foot ulcer with osteomyelitis E11.621; E11.69; L97.509; M86.9 Diabetes E11.9 Hypothyroidism E03.9 Neuropathy, diabetic E11.40 Hyperlipidemia E78.5 Fatty liver K76.0 Hypertension I10
[2021-02-10] MEDS: ACETAMINOPHEN 325 MG TAB PO PRN (19:18)
[2021-02-10] MEDS: SIMVASTATIN 20 MG TAB PO SCH (20:44)
[2021-02-11] MEDS: LEVOTHYROXINE SODIUM 100 MCG TABLET PO SCH (06:30)
[2021-02-11] MEDS: INSULIN ASPART 100 UNITS/ML 3 ML PEN SC SCH ×4 (09:08→20:40)
[2021-02-11] MEDS: INSULIN GLARGINE SOLOSTAR 100 UNITS/ML 3 ML PEN SC SCH ×2 (09:09→20:39)
[2021-02-11] MEDS: lisinopril 20 MG TAB PO SCH (09:28)
[2021-02-11] MEDS: cefTRIAXone SODIUM 2,000 MG in DEXTROSE 5% 50 ML IV SCH (09:51)
[2021-02-11] MEDS: diphenhydrAMINE Capsule 25 MG CAP PO PRN (10:25)
--- NOTE | 2021-02-11 11:27 | Hospitalist Progress Note ---
Date of Service February 11, 2021 Assessment & Plan (1) Diabetic foot ulcer with osteomyelitis: Plan: Osteomyelitis left calcaneus and left first MTP, proximal phalanx of the left fifth toe. Osteomyelitis of right fifth MTP that is most likely chronic but could also poss ibly have an acute component is draining and with foul smell Place on vancomycin IV and Zosyn IV per pharmacokinetic monitoring left foot MRI 1. Abnormal marrow signal and cortical destruction within the majority of the fifth metatarsal and base of the right fifth toe proximal phalanx consistent with osteomyelitis. 2. There is suggestion of a 2.8 x 1.5 cm abscess along the dorsal lateral asp ect of the forefoot at the level of the fifth metatarsal head. 3. Possible pathologic fracture at the neck of the fifth metatarsal. 4. Osteitis without evidence for osteomyelitis within the distal phalanx of the first toe. right foot without definitely osteomyelitis but chronic appearing sclerosis of the lateral cortex of the 5th metatarsal base -> Evaluated by Dr. Loyd on 02/02 with recommendations for: * After review of heel MRI recommendations now are to proceed a below the knee amputation which the patient is not in agreement with. discussed again on 02/05 with patient and her that BKA is best option for eradicating infection and healing, still refusing committed to using wound vac and IV antibiotics will need PT/OT evaluations, recommend rehab, referral made to [facility] back up still waiting on insurance auth for [facility] per ID, can change antibiotics to Rocephin 2gm IV daily, needs 6 weeks of treatment peripheral guided IV placed on 02/08 6 weeks from 01/31 would be 03/14/21 (2) Diabetes: Plan: hyperglycemia on 02/07, > 300 insulin glargine increase back to 40 units subcu twice daily tightened correction factor to 10 with goal < 140, carb ratio still 5 sugars reasonably controlled on the above regimen, recommend continuing this at [facility] once she goes there Holding Metformin, resume on discharge (3) Hypothyroidism: Plan: Continue levothyroxine 100 mcg daily (4) Neuropathy, diabetic: Plan: Significant decrease sensation, allowing progression of significant ulceration and osteomyelitis without significant pain appreciated (5) Hyperlipidemia: Plan: Continue simvastatin 20 mg at bedtime (6) Fatty liver: Plan: Follow serial laboratories (7) Hypertension: Plan: Continue lisinopril Plan: referral to [facility], insurance auth has been pending now for 4 days, very frustrating at this point, she needs to get daily therapy to get stronger Admission and Anticipated Discharge Date Admission Date: January 30, 2021 Subjective still awaiting insurance auth no new issues, patient is just getting frustrated sitting here Review of Systems Review of Systems: All systems reviewed & are unremarkable except as noted in Subjective Physical Exam Constitutional: well developed, well nourished, + obese and comfortable; no acute distress Neck: trachea midline and + thick neck; neck nontender Respiratory: normal respiratory effort, lungs clear to auscultation Cardiovascular: RRR, no murmur, no edema Gastrointestinal (Abdomen): normal bowel sounds, soft, nontender, no hepatosplenomegaly Musculoskeletal: Head/Neck/Chest: normocephalic, head atraumatic and neck supple Extremities: + abnormal strength; no cyanosis, no clubbing and no petechiae Skin: + wound (left foot, vac in place, no surrounding cellulitis) Neurologic: normal touch/pain/proprioception, CN's II-XI intact bilaterally, moves all extremities and awake; no focal motor deficits Psychiatric: A+Ox3, euthymic affect Results & Data Results & Data ([facility]) Vital Signs (Past 12 Hours) Vital Signs Temp Pulse Resp BP Pulse Ox 02/11/21 09:27 139/82 02/11/21 07:52 36.7 C 80 20 120/78 95 Laboratory Results Laboratory Results - last 24 hr 02/10/21 02/10/21 02/10/21 12:10 17:17 20:40 POC Glucose 230 H 162 H 230 H 02/11/21 08:07 POC Glucose 179 H Medications Administered Current Inpatient Medications Acetaminophen (Acetaminophen 325 Mg Tab) 650 mg PO Q4H PRN PRN Reason: pain/fever Stop: 03/02/21 01:55 Last Admin: 02/10/21 19:18 Dose: 650 mg Documented by: Dextrose (Dextrose 50% 50 Ml Syringe) 25 - 50 ml IV UD PRN; Protocol PRN Reason: Hypoglycemia Protocol Stop: 03/02/21 01:55 Diphenhydramine HCl (Diphenhydramine Capsule 25 Mg Cap) 25 mg PO Q8 PRN PRN Reason: Itching Stop: 03/12/21 10:40 Last Admin: 02/11/21 10:25 Dose: 25 mg Documented by: Glucagon (Glucagon For Inj 1 Mg Vial) 1 mg SQ UD PRN; Protocol PRN Reason: Hypoglycemia Protocol Stop: 03/02/21 01:55 Glucose (Glucose 10 Tabs/Tube) 4 - 8 tabs PO UD PRN; Protocol PRN Reason: Hypoglycemia Protocol Stop: 03/02/21 01:55 Glucose (Glucose 40% Gel 15 Gm Tube) 15 - 30 gm PO UD PRN; Protocol PRN Reason: Hypoglycemia Protocol Stop: 03/02/21 01:55 Ceftriaxone Sodium 2,000 mg/ (Dextrose) 70 mls @ 140 mls/hr IV DAILY AB; Protocol Stop: 02/15/21 08:59 Last Infusion: 02/11/21 10:23 Dose: Infused Documented by: Insulin Aspart (Insulin Aspart 100 Units/Ml 3 Ml Pen) 0 units SC ACHS [facility] Stop: 03/06/21 20:59 Last Admin: 02/11/21 09:08 Dose: 14 units Documented by: Insulin Glargine (Insulin Glargine Solostar 100 Units/Ml 3 Ml Pen) 40 units SC BID [facility] Stop: 03/09/21 20:59 Last Admin: 02/11/21 09:09 Dose: 40 units Documented by: Levothyroxine Sodium (Levothyroxine Sodium 100 Mcg Tablet) 100 mcg PO DAILYBB [facility] Stop: 03/02/21 06:29 Last Admin: 02/11/21 06:30 Dose: 100 mcg Documented by: Lisinopril (Lisinopril 20 Mg Tab) 20 mg PO DAILY [facility] Stop: 03/02/21 08:59 Last Admin: 02/11/21 09:28 Dose: 20 mg Documented by: Miconazole Nitrate (Miconazole Nitrate Powder 43 Gm) 1 appln EXT PRN PRN PRN Reason: Affected Skin Folds Stop: 03/05/21 21:09 Last Admin: 02/08/21 13:13 Dose: 1 appln Documented by: Miscellaneous (Carbohydrates For Hypoglycemia ) 15 - 30 gm PO UD PRN PRN Reason: Hypoglycemia Protocol Stop: 03/02/21 01:55 Ondansetron HCl (Ondansetron Inj 2 Mg/Ml 2 Ml Vial) 4 mg IV Q6H PRN PRN Reason: Nausea Stop: 03/02/21 01:55 Simvastatin (Simvastatin 20 Mg Tab) 20 mg PO HS [facility] Stop: 03/02/21 20:59 Last Admin: 02/10/21 20:44 Dose: 20 mg Documented by: PG Care Time/CCT Total # of Minutes Spent Total Time Spent with Patient: Total time spent is greater than 50% in coordination of care (as documented) at patient's floor/unit and/or counseling patient: Coding Level of Care Code 75917 Subseq Hosp Care Lvl 2 Diagnoses Diabetic foot ulcer with osteomyelitis E11.621; E11.69; L97.509; M86.9 Diabetes E11.9 Hypothyroidism E03.9 Neuropathy, diabetic E11.40 Hyperlipidemia E78.5 Fatty liver K76.0 Hypertension I10
[2021-02-11] MEDS: ACETAMINOPHEN 325 MG TAB PO PRN (20:15)
[2021-02-11] MEDS: SIMVASTATIN 20 MG TAB PO SCH (20:37)
[2021-02-12] MEDS: LEVOTHYROXINE SODIUM 100 MCG TABLET PO SCH (05:33)
[2021-02-12 07:19] VITALS: BP 137/76; PULSE 87; TEMP 97.5; O2SAT 99
[2021-02-12] MEDS: cefTRIAXone SODIUM 2,000 MG in DEXTROSE 5% 50 ML IV SCH (08:43)
[2021-02-12] MEDS: lisinopril 20 MG TAB PO SCH (08:47)
[2021-02-12] MEDS: INSULIN ASPART 100 UNITS/ML 3 ML PEN SC SCH ×2 (08:48→12:48)
[2021-02-12] MEDS: INSULIN GLARGINE SOLOSTAR 100 UNITS/ML 3 ML PEN SC SCH (08:50)
--- NOTE | 2021-02-12 09:08 | Hospitalist Progress Note ---
Date of Service February 12, 2021 Assessment & Plan (1) Diabetic foot ulcer with osteomyelitis: Plan: Osteomyelitis left calcaneus and left first MTP, proximal phalanx of the left fifth toe. Osteomyelitis of right fifth MTP that is most likely chronic but could also poss ibly have an acute component is draining and with foul smell Place on vancomycin IV and Zosyn IV per pharmacokinetic monitoring left foot MRI 1. Abnormal marrow signal and cortical destruction within the majority of the fifth metatarsal and base of the right fifth toe proximal phalanx consistent with osteomyelitis. 2. There is suggestion of a 2.8 x 1.5 cm abscess along the dorsal lateral asp ect of the forefoot at the level of the fifth metatarsal head. 3. Possible pathologic fracture at the neck of the fifth metatarsal. 4. Osteitis without evidence for osteomyelitis within the distal phalanx of the first toe. right foot without definitely osteomyelitis but chronic appearing sclerosis of the lateral cortex of the 5th metatarsal base -> Evaluated by Dr. Loyd on 02/02 with recommendations for: * After review of heel MRI recommendations now are to proceed a below the knee amputation which the patient is not in agreement with. discussed again on 02/05 with patient and her that BKA is best option for eradicating infection and healing, still refusing committed to using wound vac and IV antibiotics will need PT/OT evaluations, recommend rehab, referral made to [facility] with [facility] back up still waiting on insurance auth for [facility] per ID, can change antibiotics to Rocephin 2gm IV daily, needs 6 weeks of treatment peripheral guided IV placed on 02/08 6 weeks from 01/31 would be 03/14/21 (2) Diabetes: Plan: hyperglycemia on 02/07, > 300 insulin glargine increase back to 40 units subcu twice daily tightened correction factor to 10 with goal < 140, carb ratio still 5 sugars reasonably controlled on the above regimen, recommend continuing this at [facility] once she goes there Holding Metformin, resume on discharge (3) Hypothyroidism: Plan: Continue levothyroxine 100 mcg daily (4) Neuropathy, diabetic: Plan: Significant decrease sensation, allowing progression of significant ulceration and osteomyelitis without significant pain appreciated (5) Hyperlipidemia: Plan: Continue simvastatin 20 mg at bedtime (6) Fatty liver: Plan: Follow serial laboratories (7) Hypertension: Plan: Continue lisinopril Plan: referral to [facility], insurance auth has been pending now for 4 days, very frustrating at this point, she needs to get daily therapy to get stronger Admission and Anticipated Discharge Date Admission Date: January 30, 2021 Results & Data Results & Data ([facility]) Vital Signs (Past 12 Hours) Vital Signs Temp Pulse Resp BP Pulse Ox 02/12/21 07:15 97.5 F L 87 18 137/76 99 02/11/21 22:44 97.9 F 82 16 112/73 94 PG Care Time/CCT Total # of Minutes Spent Total Time Spent with Patient: Total time spent is greater than 50% in coordination of care (as documented) at patient's floor/unit and/or counseling patient: Coding Diagnoses Diabetic foot ulcer with osteomyelitis E11.621; E11.69; L97.509; M86.9 Diabetes E11.9 Hypothyroidism E03.9 Neuropathy, diabetic E11.40 Hyperlipidemia E78.5 Fatty liver K76.0 Hypertension I10
--- NOTE | 2021-02-12 17:58 | Discharge Summary ---
Date of Service February 12, 2021 Admission HPI Per Admitting Provider The patient is a 55-year-old female with past medical history including hyperglycemia in diabetes, diabetes mellitus, hypothyroidism, diabetic neuropathy, vitamin D deficiency, hyperlipidemia, fatty liver, leiomyoma of uterus, hypertension, obesity and muscle spasm, was referred to the emergency department by her outpatient physician due to concerns regarding diabetic foot ulcers. Patient herself not experience any discomfort due to her significant diabetic neuropathy. Principal Diagnosis diabetic foot infection with osteomyelitis and recommendation of amputation refused by patient uncontrolled diabetes diabetic neuropathy morbid obesity complicating foot wounds due to shearing pressure Discharge Exam The patient appeared well Vital signs as documented. Lungs are clear to auscultation and appear unlabored Cardiac exam, Rhythm is regular.. No murmurs, rubs or gallops. Abdominal exam reveals normal bowel sounds, soft non tender, no masses Unfortunately both feet were wrapped and dressed at the time of my evaluation Neurologic exam is alert and oriented, no focal loss of strength or sensation Skin is without bruises or rashes Psychologically is with somewhat of an odd affect slightly in denial about the severity of her illness. Discharge Data Allergies Allergy/AdvReac Type Severity Reaction Status Date / Time No Known Drug Allergies AdvReac Unknown Unknown Verified 01/30/21 23:34 Consultations 01/30/21 23:09 ED Decision to Admit Stat 01/31/21 18:47 Consult Orthopedic Surgery Routine 02/04/21 13:53 Consult Infectious Diseases Routine Procedures Performed Operation Date: 02/03/21 09:30 <No data on this case meets the specified criteria> Operation Date: 02/04/21 09:00 <No data on this case meets the specified criteria> Ordered Studies 01/31/21 18:18 MR foot LT w/o con Routine MR foot RT w/o con Routine 02/02/21 12:25 MR ankle LT wo con Urgent Diabetes Follow up Diabetes Follow-up Needed for HgbA1c >9% Hospital Course (1) Diabetic foot ulcer with osteomyelitis: Osteomyelitis left calcaneus and left first MTP, proximal phalanx of the left fifth toe. Osteomyelitis of right fifth MTP that is most likely chronic but could also possibly have an acute component is draining and with foul smell Place on vancomycin IV and Zosyn IV per pharmacokinetic monitoring left foot MRI 1. Abnormal marrow signal and cortical destruction within the majority of the fifth metatarsal and base of the right fifth toe proximal phalanx consistent with osteomyelitis. 2. There is suggestion of a 2.8 x 1.5 cm abscess along the dorsal lateral aspect of the forefoot at the level of the fifth metatarsal head. 3. Possible pathologic fracture at the neck of the fifth metatarsal. 4. Osteitis without evidence for osteomyelitis within the distal phalanx of the first toe. right foot without definitely osteomyelitis but chronic appearing sclerosis of the lateral cortex of the 5th metatarsal base -> Evaluated by Dr. Loyd on 02/02 with recommendations for: * After review of heel MRI recommendations now are to proceed a below the knee amputation which the patient is not in agreement with. discussed again on 02/05 with patient and her that BKA is best option for eradicating infection and healing, patient still does not want have surgery she is committed to using wound vac and IV antibiotics Transfer to acute rehab for continued care per ID, can change antibiotics to Rocephin 2gm IV daily, needs 6 weeks of treatment peripheral guided IV placed on 02/08 6 weeks from 01/31 would be 03/14/21 (2) Diabetes: hyperglycemia on 02/07, > 300 insulin glargine 40 units subcu twice daily tightened correction factor to 10 with goal < 140, carb ratio still 5 Hemoglobin A1c was 10.5 on admission therefore suggesting uncontrolled diabetes Holding Metformin, on discharge (3) Hypothyroidism: Continue levothyroxine 100 mcg daily (4) Neuropathy, diabetic: Significant decrease sensation, allowing progression of significant ulceration and osteomyelitis without significant pain appreciated (5) Hyperlipidemia: Continue simvastatin 20 mg at bedtime (6) Fatty liver: No significant LFT abnormalities (7) Hypertension: Continue lisinopril adds additional renal protection Total Time Total Time Spent Total Time Spent (In Minutes): It required greater than 30 minutes to prepare this patient for discharge Discharge Plan Discharge Items Patient Disposition: Transfer Inpatient Rehab Fac Reason For Visit: diabetic foot infection,b/l osteomyelitis Discharge Diagnosis: bilateral diabetic foot infection left foot osteomyelitis diabetes with neuropathy hypothyroidism fatty liver Activity: Per Instructions section Activity Comment: reduced weiight bearing and wound care Non-emergency contact: Primary Care Provider and Surgeon Call non-emergency contact if: your symptoms worsen and you have a fever Follow-up/Referrals: Stephy Klein CRNP [Primary Care Provider] - Julianne Sarmiento PA-C [Physician Emergency Veterinarian] - 03/06/21 10:00 am Helen Villar DPM [Physician] - Diet: Carb Consistent or DM2 Addtl Attending Provider Instructions: Please continue to follow with wound care, near end of antibiotics please have surgical re evaluation last dose of antibiotics 03/14/21 current insulin ssi Goal BSG Range: Low 100_mg/dL, High 140_mg/dL Correction Factor: 10_mg/dL/unit Carbohydrate ratio = _5_ g/unit BSGs ACHS if eating, q6h if npo If pt is NPO, do NOT hold correction factor insulin without an order Addtl Stone Polisher Hand Provider Instructions: Weight bearing as tolerated on right foot on heel with post op /offloading shoe on right foot Non weight bearing left foot/heel Elevate as needed for pain/swelling. Wound vac as per wound care clinic Allowed for full range of motion toes and ankles both feet. Dressings to right foot as instructed by wound clinic. Follow up with [facility] as scheduled on 03/06/21 at 10:00 a.m. Pending Studies at Discharge: No Stand-Alone Forms: My [facility] Skilled Items Patient informed of condition?: Yes DNR: No Discharge Level of Care: Acute rehab Communicable Disease: No Discharge Prognosis: Stable Lines: US Guided Peripheral IV Urinary Catheter: No Medications and DC Order Prescriptions: New acetaminophen 325 mg Tablet 650 mg PO Q4H PRN (Reason: pain) Qty: 30 RF: 0 Desenex 2 % Powder 1 applic EXT PRN PRN (Reason: rash) Qty: 43 RF: 0 ceftriaxone 2 gram recon soln 2 g IV DAILY Qty: 31 RF: 0 Continued levothyroxine 100 mcg tablet 100 mcg PO DAILY Qty: 30 RF: 11 lancets [OneTouch Delica Lancets] 33 gauge misc See Rx Instructions .ROUTE .COMPLEX Qty: 100 RF: 11 lisinopril 20 mg tablet 20 mg PO DAILY RF: 0 simvastatin 20 mg tablet 20 mg PO HS RF: 0 insulin aspart U-100 [Novolog Flexpen U-100 Insulin] 100 unit/mL (3 mL) insulin pen 0 unit SQ AC RF: 0 Lantus Solostar U-100 Insulin 100 unit/mL (3 mL) insulin pen 40 unit SQ BID RF: 0 Discontinued metformin 500 mg tablet 500 mg PO DAILY Qty: 30 RF: 11 methocarbamol 750 mg tablet 750 mg PO .COMPLEX Qty: 30 RF: 0 No Action (DME) pen needle, diabetic [BD Ultra-Fine Mini Pen Needle] 31 gauge x 3/16" needle See Dose Instructions .ROUTE .MEDSUPPLY Qty: 100 RF: 5 (DME) blood-glucose meter [OneTouch Verio Meter] Misc See Rx Instructions .ROUTE .MEDSUPPLY Qty: 1 RF: 0 (DME) OneTouch Verio test strips Strip See Rx Instructions .ROUTE .MEDSUPPLY RF: 0 Discharge Orders: Discharge Order (Routine); Ordered 02/12/21 Ordered By: Shane Bush/Other Patient Handouts: High Blood Sugar (Hyperglycemia), Healthy Meals for Diabetes, Diabetes: Keeping Feet Healthy Admission Data Admit Date/Time: 01/30/21 23:47 Attending Provider: Shane Harris Admit Provider: Dao Pedraza Primary Care Provider: Stephy Klein Other Providers: Pelon Lam ; Cesario Loyd ; Richard Mena ; Vera Myers ; Arvin Alvares I. ; Mata Verdin II ; Leah Hernandez ; Rodo Raines ; [facility] ; [facility] Other Interventions: Discharge Summary Assessment (RN) Last Done: 02/12/21 14:00 Coding Level of Care Code D/C DAY MANAGEMENT >30 MINS Diagnoses Diabetic foot ulcer with osteomyelitis E11.621; E11.69; L97.509; M86.9 Diabetes E11.9 Hypothyroidism E03.9 Neuropathy, diabetic E11.40 Hyperlipidemia E78.5 Fatty liver K76.0 Hypertension I10
== END 2021-02-12 14:48 | DRG 638 ==
LOC: ED 20:47 → 3N 23:47 → SUATTDRO 23:47 → 3N 01-31 01:23